=== PATIENT | male | born 1970 | race Caucasian/White ===

== ENCOUNTER 2017-01-27 15:43 | Inpatient (IN) | payer OTHER ==
[~2017-01-27] VITALS: Ht 160 cm; Wt 78.6 kg
--- NOTE | ~2017-01-27 | CO ---
Unit #: [id number] #: [id number] Patient: CHENTE KAHN [id number] [facility] [address] [facility]. [place], [place] [address] [id number] I MR#: [id number] NAME: CHENTE KAHN. ROOM: 317 Age: 46 Sex: M Admission Date: 01/27/2017 : 1970 Attending Physician: Jesse Nelson M.D. Primary Care Physician: Ramez Russell M.D. Consultation Date: 02/02/2017 CONSULTATION REPORT REASON FOR CONSULTATION Followup. DISCUSSION Mr. Chente Kahn is a 46-year-old white male seen in room 317, bed 1 on 02/02/2017 at [facility]. Patient diagnosed with CVA, history of substance abuse, opiate abuse, amphetamine abuse, cannabis abuse. Patient has a sitter. Dressed casually, lying comfortably in bed. The patient reported that they would like to have ice chips. The patient is currently on NPO, scheduled to get feeding tube tomorrow morning. The patient's mood is sad, dysphoric, flat affect but denied any thoughts of harming self or others. No agitation. Compliant with treatment. REVIEW OF SYSTEMS Complete review of systems unremarkable except as mentioned above. Patient's vital signs are 98.7, 62, respirations 16, blood pressure 127/81, oxygen saturation 98%. MENTAL STATUS EXAMINATION General appearance: Patient dressed in hospital attire, thin build, dressed casually in hospital attire. Lying comfortably in propped up position, has a sitter. Attention span and concentration fair. Speech regular rate, slow in volume and rate. Oriented in place and person. Mood and affect sad dysphoric. Thought process coherent. Thought content: Patient denied any thoughts of harming self of others. Denied any hallucination but sad, depressed, withdrawn. Recent and remote memory fair. Language intact. Fund of knowledge fair to slightly impaired. Insight and judgment fair to slightly impaired. DIAGNOSES PSYCHIATRIC: Opiate use disorder, severe, F11.20. Amphetamine use disorder, moderate, F15.20. Major depressive disorder, recurrent, severe, F33.2. Cannabis abuse, moderate, F12.20. ASSESSMENT AND PLAN 1. Supportive psychotherapy and psychoeducation provided to patient. 2. Educated about benefits and side effects of medication and course and prognosis of illness. 3. Advised to continue with sitter one-to-one. Patient is currently on 72-hour hold. Continue with current treatment. If needed, consider further adjustment of medication such as trying SSRI. Please feel free to call if any questions, . Unit #: [id number] #: [id number] Patient: CHENTE KAHN Dictated by... Eric Pérez/cony TD: 02/04/2017 10:58 JOB #: [id number] CONSULTATION REPORT Page 1 of 1 X Julio Cee MD X CONSULTATION REPORT
--- NOTE | ~2017-01-27 | OR ---
Unit #: [id number] #: [id number] Patient: SLOANE MCKEON [id number] [address] [place], [place] [address] [id number] I MR#: [id number] NAME: SLOANE MCKEON ROOM: [facility] Date of Procedure: 02/05/2017 Admission Date: 01/27/2017 Surgeon: David Hernandes M.D. : 1970 Attending Physician: Chaz Black M.D. Primary Care Physician: Ramez Russell M.D. OPERATIVE REPORT PROCEDURE PERFORMED Esophagogastroduodenoscopy with percutaneous endoscopic gastrostomy tube placement. INDICATIONS FOR PROCEDURE The patient with history of acute stroke, now with significant dysphagia and aspiration risk, undergoing evaluation with upper endoscopy for PEG tube placement. MEDICATIONS Monitored anesthesia. POSTOPERATIVE FINDINGS 1. Normal esophagus. Normal stomach. Normal duodenum with distal duodenum. 2. Successful placement of G-tube by push method. PLAN Please see inpatient orders for detailed postop orders. DESCRIPTION OF PROCEDURE The patient was explained of the procedure, risks, and benefits. Informed consent was obtained from fund accountant. He was brought to the endoscopy room. Propofol anesthesia was given. Bite block was placed. The scope was passed down the mouth into esophagus, stomach, duodenum, and distal duodenum. Exam was largely normal. At this point, we identified a spot for PEG tube placement by indentation and transillumination which was then confirmed with safe track method. Small incision was made after local anesthetic was given. Trocar and cannula were passed through this incision into the stomach, where a guidewire was pushed in also which was then pulled out of the patient's mouth using a snare. Push method G-tube was then placed over the wire and pulled out of anterior abdominal wall, where it was secured with an external bumper, re-scoped the patient, inner bumper was nicely in place. Pictures were taken. Gently, the scope was pulled out. He tolerated it well. No major complications were seen. Dictated by... David Hernandes M.D. SKJ/christopherl Unit #: [id number] #: [id number] Patient: SLOANE MCKEON TD: 02/06/2017 06:25 JOB #: [id number] OPERATIVE REPORT Page 1 of 1 X David Hernandes MD PROCEDURE OPERATIVE NOTE
--- NOTE | ~2017-01-27 | FU ---
[facility] Nutrition Therapy DATE: 02/05/17 Patient: SLOANE MCKEON Physician: REGINALD Address: [address] [place] [address] Room/Bed: [address] [place] [address], Zip: [place] [address] Admit Date: 01/27/17 Date of : [birth year] Height: 5 3 Weight: 139 63.4 NUTRITION MONITORING/FOLLOW-UP: Reason: Nutrition follow-up/consult for enteral nutrition recommendations Admitting dx: Pt is a 46 y/o male admitted with a stroke Anthropometrics: HT:63" Admitting WT:144# Current WT:139# BMI:25.5 (based on admit) Labs: Gluc:129 POC:108-126 Meds: Levemir, Furosemide, Low SSI I&O's: BM 02/04 Skin: Mepilex border-coccyx Estimated Nutrition Needs: 7604-6049 kcal/day (25-30 kcals/kg CBW) 63-76g protein/day (1.0-1.2 g/kg CBW) Fluids consistent with kcal needs or per MD. Assessment: Chart reviewed, events noted. RD consulted to provide enteral nutrition recommendations after pt failed LITIGATION ASSISTANT evaluations. Crime Lab Analyst attempted to speak with pt about EN. Pt was able to express understanding with nods, he is not capable of verbal communication at this moment. Pt has a PEG tube placed in preparation for EN. See RD recs below, will continue to follow hospital course. Dx: Inadequate oral intake r/t dysphagia AEB NPO, need for EN. - ACTIVE Intervention: Enteral nutrition initiation Monitoring, Evaluation and Goals: 1. Labs WNL - IN PROGRESS (need to obtain new labs) 2. Maintain current weight status - IN PROGRESS 3. EN consistent with estimated nutritional needs (tolerate @ goal rate) - IN PROGRESS (pt is s/p PEG, EN not yet initiated) 4. Tolerance of oral diet advancement per LITIGATION ASSISTANT once appropriate/able - NOT MET Monitor: per protocol criteria to determine if above goals met Recommendations: [facility] Nutrition Therapy DATE: 02/05/17 Patient: SLOANE MCKEON Physician: REGINALD Address: [address] [place] [address] Room/Bed: [address] [place] [address], Zip: [place] [address] Admit Date: 08/28/17 Date of : [birth year] Height: 5 3 Weight: [address] providing enteral nutrition recommendations. Once able, start enteral nutrition with Glucerna 1.5 @ 20 ml/hr and increase by 10 ml q 4 hours until a goal rate of 45 ml/hr is reached, to provide 100% of estimated nutritional needs (will provide 1080 ml, 1620 kcals, 89 g protein, and 821 ml water). Once at goal rate flush with 200 ml free water QID, or per MD. 2. Continue to obtain current labs. RD will follow to determine tolerance of enteral nutrition. Status: Moderate nutrition risk Respectfully, Earl Santos, MS, RD, LD Charissa Humphrey, Radiologic Electronic Specialist Food and Nutritional Services [facility] cc: client file
--- NOTE | ~2017-01-27 | EKG ---
PATIENT: SLOANE MCKEON UNIT #: [id number] Ventricular Rate: 66 BPM Atrial Rate: 66 BPM P-R Interval: 132 ms QRS Duration: 102 ms Q-T Interval: 468 ms QTC Calculation(Bezet): 490 ms P Edna: 69 degrees Calculated R Edna: 76 degrees Calculated T Edna: 96 degrees Diagnosis Line: Normal sinus rhythm Diagnosis Line: Possible Left atrial enlargement Diagnosis Line: Prolonged QT Diagnosis Line: Abnormal ECG Diagnosis Line: When compared with ECG of 30-JAN-2017 06:19, Diagnosis Line: (unconfirmed) Diagnosis Line: QRS axis Shifted left Diagnosis Line: Confirmed by NIURKA CORTÉS MD ([id number]) on Diagnosis Line: 01/31/2017 4:47:47 PM INTERPRETING MD: JAMIE
--- NOTE | ~2017-01-27 | CT72 ---
[facility] A Service [facility] RADIOLOGY TEXT RESULTS PATIENT: SLOANE MCKEON LOCATION: [address] : [birth year] UNIT #: [id number] AGE: [address]: Jesse Nelson MD SEX: M ORDER DR: [id number] [place], [place] [address] [id number] I MR#: [id number] Acc #: [id number] NAME: SLOANE MCKEON. : 1970 SEX: M STUDY DATE/TIME: 01/27/2017 15:55 UNIT: [facility] ROOM: [facility] STUDY DESCRIPTION: CT Head Wo Contrast Stroke Attending Physician: Renu Aponte M.D. Ordering Physician: Austin Langley M.D. Primary Care Physician: Ramez Russell M.D. MEDICAL IMAGING REPORT This report is preliminary unless electronic signature is present EXAM CT scan of the head without contrast INDICATION Left-sided weakness starting today since 2 p.m. COMPARISON 08/01/[address] exam was performed with one or more of the following radiation dose reduction techniques: automatic exposure control, adjustment of mA and/or kV according to patient size, and iterative reconstruction. FINDINGS Unenhanced images were obtained through the brain. The ventricles and subarachnoid spaces are normal. There is a small area of decreased density in the left krueger radiata in the frontal region which is unchanged from 08/01/2014. This is a few millimeters in diameter. There is no hemorrhage. On the right side there is a more pronounced area of old ischemic change that is about 16 mm in diameter. This is in the subcortical white matter of the frontal lobe. IMPRESSION Old right and left frontal lobe ischemic changes. No acute abnormalities are identified. Dictated by... Alejandro Valdez M.D. THIS IS AN ELECTRONICALLY VERIFIED REPORT [facility] A Service [facility] RADIOLOGY TEXT RESULTS PATIENT: SLOANE MCKEON LOCATION: [address] : [birth year] UNIT #: [id number] AGE: [address]: Jesse Nelson MD SEX: M ORDER DR: Alejandro Valdez M.D. at 01/28/2017 12:43 PM LALI/jose TD: 01/28/2017 00:15 JOB #: [id number] MEDICAL IMAGING REPORT Page 1 of 1 COPY
--- NOTE | ~2017-01-27 | DS ---
Unit #: [id number] #: [id number] Patient: SLOANE MCKEON [id number] [facility]. [place], [place] [address] [id number] I MR#: [id number] NAME: SLOANE MCKEON. ROOM: 317 Age: 46 Sex: M Admission Date: 01/27/2017 : 1970 Discharge Date: 02/06/2017 Attending Physician: Chaz Black M.D. Primary Care Physician: Ramez Russell M.D. DISCHARGE SUMMARY ADDENDUM Please see discharge summary dictated from previous hospital stay on February 05, 2017, for details of hospital stay. Essentially afterwards and while we were awaiting insurance approval for patient to be transitioned to [facility], patient elected to leave AMA. He stated that he no longer wished for any medical care. He was extensively counseled by numerous nurses as well as staff. He elected to sign AMA papers. Subsequently, stated that he had a ride home. Went down to the lobby of the hospital for several hours. He waited there. Nobody came to pick him up and apparently he had no place to go. Therefore, he got into a wheelchair, decided to go down [facility]. Again, he was not sure where he was going at that point in time. Subsequently, he was picked up by EMS services and brought back to the emergency room to where he was re-evaluated. Please see Dr. Orozco's H and P for details of re-admission. Dictated by... Eric Murphy/cony TD: 02/07/2017 14:04 JOB #: [id number] DISCHARGE SUMMARY Page 1 of 1 X Chaz Black MD X DISCHARGE SUMMARY
--- NOTE | ~2017-01-27 | A ---
[facility] Nutrition Therapy DATE: 01/28/17 Patient: SLOANE MCKEON Physician: REGINALD Address: [address] [place] [address] Room/Bed: [address], Zip: [place] [address] Admit Date: 01/27/17 Date of : [birth year] Height: 5 10 Weight: 143 65 NUTRITIONAL ASSESSMENT: REASON: PT SEEN FOR DX WI IS 46 Y.O. MALE ADMITTED FOR CVA PMH: SUBSTANCE ABUSE, DM, HTN, HLD, HI, TIA, SEIZURES, CAD, HEPATITIS, ANXIETY, 1 PPD SMOKER Anthropometrics: 5'3", WT: 144# (65 KG), BMI: 25.5, 116%IBW Labs: GLU: 203, NA+:134, CA+:8.1, ALB: 2.3, A1c: 10.0 (REFLECTS POORLY CONROLLED DM) Meds: NOVOLOG, NACL, D5% I/O & Bowel function: 450/450 Skin Integrity: TATTOOS OBSERVED Assessment: CHART REVIEWED AND EVENTS NOTED. PT SEEN FOR DX. PT SLEEPY/LETHARGIC AT TIME OF VISIT, UNABLE TO COMMUNICATE W/RD FOR DIET INTERVIEW. PER RN AND CHART, PT ADMITTED FOR CVA, CURRENTLY ON STROKE PROTOCOL, UNCOOPERATIVE. PLANS IN PLACE FOR AIR VALVE MECHANIC EVAL TODAY. RD TO FOLLOW. SEE RECOMMENDATIONS BELOW. Dx: ALTERED NUTRIENT NEEDS R/T CURRENT DIAGNOSIS, CURRENT CLINICAL CONDITION AEB NO DIET ORDER IN PLACE, AIR VALVE MECHANIC EVAL TODAY. Intervention: 1. NO DIET ORDER Monitoring, Evaluation and Goals: 1. ORAL INTAKE; ADVANCE DIET AND CONSUME/TOLERATE >50% OF MEALS 2. WEIGHTS; PROMOTE WEIGHT MAINTENANCE 3. LABS; WNL MONITOR: -AIR VALVE MECHANIC EVAL/DIET ADVANCEMENT -PO INTAKE/APPETITE -WEIGHTS -LABS Recommendations: 1. ONCE MEDICALLY FEASIBLE, ADVANCE DIET PER AIR VALVE MECHANIC + CC/HH DIET [facility]: 01[facility]28[facility]17 Patient: SLOANE MCKEON Physician: REGINALD Address: [address] [place] [address] Room/Bed: [address], Zip: [place] [address] Admit Date: 01/27/17 Date of : [birth year] Height: 5 10 Weight: [address] IF DIET EDUCATION REQUESTED RD WILL F/U PER PROTOCOL PT IS MILDLY COMPROMISED Respectfully, VERN CHRISTENSEN MS, RD, LD Food and Nutritional Services [facility] cc: client file
--- NOTE | ~2017-01-27 | CR72 ---
[facility] A Service [facility] RADIOLOGY TEXT RESULTS PATIENT: SLOANE MCKEON LOCATION: [address]09 : [birth year] UNIT #: [id number] AGE: [address]: Jesse Nelson MD SEX: M ORDER DR: [id number] [place], [place] [address] [id number] I MR#: [id number] Acc #: [id number] NAME: SLOANE MCKEON. : 1970 SEX: M STUDY DATE/TIME: 01/28/2017 UNIT: [facility] ROOM: [facility] STUDY DESCRIPTION: CR Chest Single View Portable Attending Physician: Jesse Nelson M.D. Ordering Physician: Tomy Robertson M.D. Primary Care Physician: Ramez Russell M.D. MEDICAL IMAGING REPORT This report is preliminary unless electronic signature is present EXAM Chest portable 01/28/2017 0926 hours HISTORY Shortness of air for 2 days, possible aspiration pneumonia. Patient is unable to provide clinical history. COMPARISON 07/25/2016 FINDINGS Portable upright chest is slightly rotated to the right. Allowing for this, there is stable cardiac size at the upper limits of normal. Mediastinal and hilar contours are normal. Lungs are clear, and there are no effusions. IMPRESSION Slight rightward rotation of the patient with stable heart size at the upper limits of normal. The lungs are clear and there are no effusions. Dictated by... Julia Vasquez M.D. THIS IS AN ELECTRONICALLY VERIFIED REPORT Julia Vasquez M.D. at 01/28/2017 2:28 PM SALVATORE/yazmin TD: 01/28/2017 11:39 JOB #: [id number] MEDICAL IMAGING REPORT [facility] A Service [facility] RADIOLOGY TEXT RESULTS PATIENT: SLOANE MCKEON LOCATION: [address] : [birth year] UNIT #: [id number] AGE: [address]: Jesse Nelson MD SEX: M ORDER DR: Page 1 of 1 COPY
--- NOTE | ~2017-01-27 | CT71 ---
[facility] A Service [facility] RADIOLOGY TEXT RESULTS PATIENT: SLOANE MCKEON LOCATION: [facility] : [birth year] UNIT #: [id number] AGE: [address]: Jesse Nelson MD SEX: M ORDER DR: [id number] [facility]. [place], [place] [address] [id number] I MR#: [id number] Acc #: [id number] NAME: SLOANE MCKEON : 1970 SEX: M STUDY DATE/TIME: 01/30/2017 13:13 UNIT: [address] ROOM: [facility] STUDY DESCRIPTION: CT Head Wo Contrast Attending Physician: Jesse Nelson M.D. Ordering Physician: Alayna Vigil M.D. Primary Care Physician: Ramez Russell M.D. MEDICAL IMAGING REPORT This report is preliminary unless electronic signature is present EXAM CT scan of the head without contrast INDICATIONS Left-sided weakness since 01/27/2017. COMPARISON 01/29/2017 TECHNIQUE Unenhanced images were obtained through the brain. This CT exam was performed with one or more of the following radiation dose reduction techniques: Automatic exposure control, adjustment of mA and/or kV according to patient size, and iterative reconstruction. FINDINGS There is an evolving right basal ganglia infarct. This area of decreased density sparing the thalamus and caudate head but involving the rest of the basal ganglia is about 4 cm in maximum dimension. There is some minimal decreased density in the cortical white matter in the central middle cerebral artery territory. There is no hemorrhage. There is some mucosal thickening in the left maxillary sinus. IMPRESSION Evolving right middle cerebral artery infarct, which is involving almost all the basal ganglia sparing the thalamus and caudate head, and extending up in a smaller distribution to the cortical white matter. There has been no change from yesterday's study. Dictated by... [facility] A Service [facility] RADIOLOGY TEXT RESULTS PATIENT: SLOANE MCKEON LOCATION: [facility] 317 : [birth year] UNIT #: [id number] AGE: [address]: Jesse Nelson MD SEX: M ORDER DR: Alejandro Valdez M.D. THIS IS AN ELECTRONICALLY VERIFIED REPORT Alejandro Valdez M.D. at 01/31/2017 6:51 AM FEL/psc TD: 01/30/2017 16:54 JOB #: [id number] MEDICAL IMAGING REPORT Page 1 of 1 COPY
--- NOTE | ~2017-01-27 | CT18 ---
[facility] A Service [facility] RADIOLOGY TEXT RESULTS PATIENT: SLOANE MCKEON LOCATION: [address] : [birth year] UNIT #: [id number] AGE: [address]: Jesse Nelson MD SEX: M ORDER DR: [id number] [facility] [address] [facility]. [place], [place] [address] [id number] E MR#: [id number] Acc #: [id number] NAME: SLOANE MCKEON. : 1970 SEX: M STUDY DATE/TIME: 01/27/2017 16:27 UNIT: [facility] ROOM: STUDY DESCRIPTION: CT Angio Head Stroke Attending Physician: Farhad Omalley M.D. Ordering Physician: Ed Doctor [id number] [facility] Primary Care Physician: Ramez Russell M.D. MEDICAL IMAGING REPORT This report is preliminary unless electronic signature is present EXAM CT angiogram head and neck HISTORY Focal neurologic deficit, left-sided weakness starting today. Last seen normal at 14:00. TECHNIQUE CT angiography head and neck vessels performed during the intravenous administration of 100 mL of Isovue-370 with imaging acquired in the axial plane followed by multiple reconstructed and reformatted images for the purpose of 3-D CT angiography of the head and neck vessels. This CT exam was performed with one or more of the following radiation dose reduction techniques: automatic exposure control, adjustment of mA and/or kV according to patient size, and iterative reconstruction. COMPARISON Head CT from earlier today. FINDINGS CT ANGIOGRAM NECK: There is atherosclerotic vascular calcification at great vessel origins with some mild soft plaque at the left common carotid artery origin but there is no hemodynamically significant stenosis noted. The branch pattern at the aortic arch is normal. Assessment of the right carotid system shows probably some mild plaque at the bifurcation but by NASCET criteria essentially 0% diameter stenosis. Mild calcified plaque in the siphon with mild stenosis. Evaluation of the left carotid system shows probably some mild soft plaque at the bifurcation but by NASCET criteria 0% stenosis is estimated. There is mild motion degradation of the images. There is some calcified plaque [facility] A Service [facility] RADIOLOGY TEXT RESULTS PATIENT: SLOANE MCKEON LOCATION: [facility] #: [id number] : [birth year] UNIT #: [id number] AGE: [address]: Jesse Nelson MD SEX: M ORDER DR: in the left carotid siphon with mild stenosis likely. The right vertebral artery is patent throughout with a small amount of calcified plaque in the neck and at the proximal intracranial vessel but no hemodynamically significant stenosis is suspected. The left vertebral artery is patent throughout with mild calcified plaque in the neck probably with some mild stenosis. Both vertebral arteries supply the basilar. The right is dominant intracranially. Assessment of the intracranial circulation shows apparent azygos variant to the KRISTAN territory. The intracranial vessels are blurred and this study is suboptimal technically. Part of the technical limitation is probably due to some venous contamination but there also appears to be some patient motion and given this limitation, the patient should be followed with an MR angiogram if he is a candidate to better assess the intracranial vessels. No central vascular cutoff or high-grade central stenosis is definitely seen but the anatomy in the region of the anterior communicating artery is particularly poorly evaluated and the study does not assess for aneurysm. The dural venous sinuses are grossly patent. Neither posterior communicator is definitely seen. There are some cervical spine degenerative changes. The patient is largely edentulous. There is left maxillary sinus disease with retained secretions and probably a small air-fluid level consistent with a component of acute sinusitis. Milder disease in the ethmoid air cells. IMPRESSION 1. By NASCET criteria 0% stenosis is suspected at either carotid bifurcation. 2. Both vertebral arteries are patent. The vessels are fairly codominant in the neck with the right being more dominant intracranially. 3. There is mild atherosclerotic disease involving the vertebral arteries and the carotid arteries bilaterally. There is probably mild narrowing at the bilateral carotid siphons. 4. Assessment of the intracranial circulation is limited. The images are blurred and this appears to be due to a combination of patient motion and some venous contamination. For this reason if the patient can undergo MRI, I would recommend that an MR angiogram of the intracranial vessels be performed. Allowing for the motion and blurring of the images, there is no focal central stenosis or vascular cutoff appreciated. The anatomy at the level of the anterior communicating artery is poorly evaluated and this study does not exclude an aneurysm. There is either an azygos variant KRISTAN territory or at least a dominant right KRISTAN vessel as a vascular variation present. 5. Paranasal sinus disease including an air-fluid level and some retained secretions in the left maxillary sinus consistent with component of acute sinusitis. [facility]. [facility] A Service of [facility] RADIOLOGY TEXT RESULTS PATIENT: SLOANE MCKEON LOCATION: [id number] : [birth year] UNIT #: [id number] AGE: [address]: Jesse Nelson MD SEX: M ORDER DR: STAT * RESULT Dictated by... Lakshmi Lynch M.D. THIS IS AN ELECTRONICALLY VERIFIED REPORT Lakshmi Lynch M.D. at 01/28/2017 7:50 AM UMU/denisha TD: 01/27/2017 17:42 JOB #: [id number] MEDICAL IMAGING REPORT Page 1 of 1 COPY
--- NOTE | ~2017-01-27 | EKG ---
PATIENT: SLOANE MCKEON UNIT #: [id number] Ventricular Rate: 93 BPM Atrial Rate: 93 BPM P-R Interval: 136 ms QRS Duration: 106 ms Q-T Interval: 394 ms QTC Calculation(Bezet): 489 ms P Chestnut: 77 degrees Calculated R Chestnut: 86 degrees Calculated T Chestnut: 102 degrees Diagnosis Line: Normal sinus rhythm Diagnosis Line: Possible Left atrial enlargement Diagnosis Line: Left ventricular hypertrophy Diagnosis Line: Abnormal ECG Diagnosis Line: When compared with ECG of 29-JAN-2017 08:27, Diagnosis Line: T wave inversion now evident in Lateral leads Diagnosis Line: Confirmed by NIURKA CORTÉS MD ([id number]) on Diagnosis Line: 01/31/2017 4:33:25 PM INTERPRETING MD: JAMIE
--- NOTE | ~2017-01-27 | CT71 ---
[facility] A Service of [facility] & [facility] RADIOLOGY TEXT RESULTS PATIENT: SLOANE MCKEON LOCATION: [address] : [birth year] UNIT #: [id number] AGE: [address]: Jesse Nelson MD SEX: M ORDER DR: [id number] [facility] [address]. [place], [place] [address] [id number] I MR#: [id number] #: [id number] NAME: SLOANE MCKEON : 1970 SEX: M STUDY DATE/TIME: 01/28/2017 16:56 UNIT: [facility] [place] ROOM: [facility] STUDY DESCRIPTION: CT Head Wo Contrast Attending Physician: Jesse Nelson M.D. Ordering Physician: Renu Aponte M.D. Primary Care Physician: Ramez Russell M.D. MEDICAL IMAGING REPORT This report is preliminary unless electronic signature is present EXAM Noncontrast head CT HISTORY Followup code stroke 01/27/2017. Alteplase given. Left arm numbness yesterday but no resolution of symptoms. COMPARISON Head CT 01/27/[address] exam was performed with one or more of the following radiation dose reduction techniques: automatic exposure control, adjustment of mA and/or kV according to patient size, and iterative reconstruction. FINDINGS Examination demonstrates interval development of an area of decreased attenuation within the right basal ganglia, right anterior limb of the internal capsule and also extending into the right external capsule. This shows some areas of increased attenuation and suggest an infarct within the right middle cerebral artery distribution with probable hemorrhagic transformation. No significant mass effect or midline shift. Ventricles, sulci and basilar cisterns appear normal. Area of decreased attenuation within the right centrum semiovale, unchanged and probably represents an old infarct as well as probable old infarct left frontoparietal region. No abnormal extraaxial fluid collections identified. Bony calvaria, skull base, mastoids unremarkable. Left maxillary sinus mucosal disease. IMPRESSION 1. Interval development of an area of abnormal attenuation within the right basal ganglia, right anterior limb internal capsule and right external capsule most likely represents an infarct in the distribution of the right middle cerebral artery and probably STS. [facility] A Service of [facility] & [facility] RADIOLOGY TEXT RESULTS PATIENT: SLOANE MCKEON LOCATION: [address] : [birth year] UNIT #: [id number] AGE: [address]: Jesse Nelson MD SEX: M ORDER DR: represents some degree of hemorrhagic transformation though no sizeable hematoma identified. No significant mass effect demonstrated. 2. Generalized atrophy with evidence of previous vascular insult right centrum semiovale and left frontoparietal region. Results are being called to the floor following this dictation. Dictated by... Darío Salguero M.D. THIS IS AN ELECTRONICALLY VERIFIED REPORT Darío Salguero M.D. at 01/29/2017 2:21 PM DINESH/jose TD: 01/28/2017 22:30 JOB #: [id number] MEDICAL IMAGING REPORT Page 1 of 1 COPY
--- NOTE | ~2017-01-27 | FU ---
[facility] Nutrition Therapy DATE: 02/01/17 Patient: SLOANE MCKEON Physician: REGINALD Address: [address] [facility] [facility] Room/Bed: [address] [place] [address], Zip: [place] [address] Admit Date: 01/27/17 Date of : [birth year] Height: 5 3 Weight: 139 63.4 NUTRITION MONITORING/FOLLOW-UP: Reason: Nutrition follow-up/consult for enteral nutrition recommendations Admitting dx: 46 y/o male admitted with stroke Anthropometrics: Ht: 63", admission wt: 144 lbs, current wt: 63 kg (138 lbs), BMI: 25 (overweight; based on admission wt) Labs: glucose/lytes WNL, glucose POC 123-150, A1C 10.0, GFR 59 Meds: Levemir, low SSI, Furosemide GI: Last BM 01/31 Skin: No issues, no edema Estimated Nutrition Needs: 8459-4153 kcals/day (25-30 kcals/kg CBW) 63-76 g protein/day (1-1.2 g/kg CBW) Fluids consistent with kcal needs or per MD Assessment: Chart reviewed, events noted. Patient initially assessed by RD on 01/28/17 due to stroke diagnosis. Prior to today, the patient was on a HH/dental soft/NDD2 diet with HTL, however he failed his most recent HORSE BREAKER eval. RD consulted to provide EN recs. Patient noted to be insistent on still taking PO, nursing persistent on reminding him of NPO status. He is on a [address] Cee is following. See RD recs below, will continue to follow hospital course. Dx: Altered nutrient needs r/t diagnosis AEB NPO, need for HORSE BREAKER - RESOLVED New nutrition dx: Inadequate oral intake r/t dysphagia AEB NPO, need for EN. Intervention: DHT placement and initiation of EN Monitoring, Evaluation and Goals: 1. PO intake > 50% of meals - NO LONGER RELEVANT (pt is NPO) 2. Labs WNL - IN PROGRESS (labs WNL w/ exception of Hgb A1C) 3. Maintain current weight status - IN PROGRESS (note 6 lb weight loss since admission) New nutrition goals (in addition to above): 1. EN consistent with estimated nutritional needs (tolerate @ goal rate). [facility] Nutrition Therapy DATE: 02/01/17 Patient: SLOAEN MCKEON Physician: REGINALD Address: [address] [place] [address] Room/Bed: [address] [place] [address], Zip: [place] [address] Admit Date: 01/27/17 Date of : [birth year] Height: 5 3 Weight: 139 63.4 2. Tolerance of oral diet advancement per HORSE BREAKER once appropriate/able. Monitor: per protocol, criteria to determine if above goals met Recommendations: Patient now NPO due to failing HORSE BREAKER eval. HORSE BREAKER to follow-up as appropriate to determine restart of PO diet. RD providing enteral nutrition recs. Once able place DHT and start enteral nutrition with Glucerna 1.5 @ 20 ml/hr and increase by 10 ml q 4 hours until goal rate of 45 ml/hr is reached, to provide 100% of estimated nutritional needs (will provide 1080 ml, 1620 kcals, 89 g protein and 821 ml water). Once at goal rate flush with 200 ml free water QID, or per MD. RD will follow to determine tolerance of enteral nutrition Status: Moderate nutrition risk Respectfully, Brielle Holland, RD, LD [facility] Nutrition[facility] cc: client file
--- NOTE | ~2017-01-27 | CO ---
Unit #: [id number] #: [id number] Patient: SLOANE MCKEON [id number] [address] [place], [place] [address] [id number] I MR#: [id number] NAME: SLOANE MCKEON ROOM: CIC2 Age: 46 Sex: M Admission Date: 01/27/2017 : 1970 Attending Physician: Jesse Nelson M.D. Primary Care Physician: Ramez Russell M.D. Consultation Date: 01/28/2017 CONSULTATION REPORT REASON FOR CONSULT ICU management. CHIEF COMPLAINT Possible stroke. HISTORY OF PRESENT ILLNESS This is a 46-year-old male with well known history of substance abuse, diabetes, hypertension, hyperlipidemia, seizure, coronary artery disease, anxiety, hepatitis and previous stroke who presented to the emergency room for evaluation and possible stroke. The patient is unable to provide any history even though he is answering some questions and all the information were obtained from the medical records. Apparently patient was last normal seen at 2:00 on the afternoon yesterday. He used methamphetamine that afternoon and then his family found him collapsed in the bathroom. In the emergency room, his NIH score was [address] head showed no acute abnormalities. Patient was given alteplase but his symptom unfortunately didn't resolve. PAST MEDICAL HISTORY 1. Polysubstance abuse. 2. Coronary artery disease. 3. Hypertension. 4. Hyperlipidemia. 5. Diabetes. 6. Seizure. 7. Anxiety. 8. CVA. 9. Nephrolithiasis. 10. Hepatitis. PAST SURGICAL HISTORY 1. Cholecystectomy. 2. Cardiac cath. 3. Lithotripsy. SOCIAL HISTORY The patient has a positive history of polysubstance abuse and yesterday he was doing methamphetamine. He smokes one pack of cigarettes daily. No history of alcohol abuse. Unit #: [id number] #: [id number] Patient: SLOANE MCKEON FAMILY HISTORY Coronary artery disease and hypertension. ALLERGIES No known drug allergy. HOME MEDICATION None. REVIEW OF SYSTEMS Unable to obtain from the patient as he is uncooperative and refusing to give any information at this point. PHYSICAL EXAMINATION GENERAL: The patient is in no acute distress. VITAL SIGNS: Blood pressure 130/62, respiratory rate 28, O2 saturation 94% on room air. HEENT: Atraumatic, normocephalic. PERRLA, EOMI. NECK: Supple. No JVD, no lymphadenopathy. CHEST: Fine rhonchi at the bases. HEART: S1, S2. No murmur, gallops or rubs. ABDOMEN: Soft, nontender. Bowel sounds positive. No hepatosplenomegaly. SKIN: No rashes. [employer] CRUSHER OPERATOR: Patient is lethargic but he is arousable to verbal stimuli. He is oriented to time, place and person. He is refusing to follow commands on the left side. However, he is withdrawing to painful stimuli on the left side. LABS AND OTHER TESTS Creatinine 0.9, sodium 134, CO2 21, white blood count 10.6, hemoglobin 12.9, platelets 278. Chest x-ray is unavailable. CT head is inconsistent with any acute finding. ASSESSMENT 1. Possible acute ischemic cerebrovascular accident status post alteplase administration. 2. Urinary tract infection. 3. Polysubstance abuse. 4. Uncontrolled diabetes. 5. Hypertension. 6. Hyperlipidemia. 7. Seizure disorder. 8. Coronary artery disease. 9. Anxiety. 10. Hepatitis. 11. Tobacco abuse. PLAN 1. Patient will be monitored in the Intensive Care Unit for the next 24 hours, status post alteplase administration. 2. NPO until cleared by neurology. 3. Blood pressure and blood sugar control. 4. Gentle IV hydration while NPO. 5. Rocephin and Diflucan for possible UTI. Unit #: [id number] #: [id number] Patient: SLOANE MCKEON 6. HIV and hepatitis panel are pending. 7. Will obtain chest x-ray to rule out any aspiration pneumonia. 8. Start Lovenox once cleared by urology. I would like to thank Juan Aponte for allowing me to be part of this patient's care. Dictated by... Eric Dougherty TD: 01/28/2017 09:46 JOB #: [id number] CONSULTATION REPORT Page 1 of 1 X SIMON LEPE MD CONSULTATION REPORT
--- NOTE | ~2017-01-27 | CR72 ---
[facility] A Service of [facility] & [facility] RADIOLOGY TEXT RESULTS PATIENT: SLOANE MCKEON LOCATION: [facility] 317- : [birth year] UNIT #: [id number] AGE: [address]: Jesse Nelson MD SEX: M ORDER DR: [id number] [facility] [address] [facility]. [place], [place] [address] [id number] I MR#: [id number] #: [id number] NAME: SLOANE MCKEON : 1970 SEX: M STUDY DATE/TIME: 01/30/2017 0:35 UNIT: [address] ROOM: [facility] STUDY DESCRIPTION: CR Chest Single View Portable Attending Physician: Jesse Nelson M.D. Ordering Physician: Marisol Orozco M.D. Primary Care Physician: Ramez Russell M.D. MEDICAL IMAGING REPORT This report is preliminary unless electronic signature is present EXAM Portable chest. HISTORY Shortness of air and weakness for 4 days. FINDINGS New small patchy infiltrate in the right lung base compared to 01/28/2017. Although nonspecific, this could be due to pneumonia. Short-term followup chest x-ray is recommended. Mild cardiac enlargement. No additional infiltrates are identified. Pulmonary vascularity is normal. Dictated by... Jose Ramon Davila M.D. THIS IS AN ELECTRONICALLY VERIFIED REPORT Jose Ramon Davila M.D. at 01/30/2017 4:39 AM DFL/wendy TD: 01/30/2017 01:34 JOB #: [id number] MEDICAL IMAGING REPORT Page 1 of 1 COPY
--- NOTE | ~2017-01-27 | TOC ---
Unit #: [id number] #: [id number] Patient: SLOANE MCKEON [id number] [facility]. [place], [place] [address] [id number] I MR#: [id number] NAME: SLOANE MCKEON. ROOM: [facility] Age: 46 Sex: M Admission Date: 01/27/2017 : 1970 Attending Physician: Jesse Nelson M.D. Primary Care Physician: Ramez Russell M.D. TRANSFER OF CARE SUMMARY DIAGNOSES AT THE TIME OF THIS DICTATION 1. Aspiration pneumonia. 2. Right middle cerebral artery infarct. 3. Amphetamine abuse. 4. Hepatitis C. 5. Hypertension. 6. Seizure disorder. HOSPITAL COURSE Patient is a 46-year-old male brought to [facility] on 01/27/17 secondary to possible stroke. Apparently, he had been found after he collapsed in the bathroom and was brought to the ED as a result. Patient was within the window for intervention for stroke and he did receive alteplase. Despite receiving alteplase, there appeared to be little change in the patient's symptoms. Ultimately, CT of the head revealed right basal ganglier infarct with a minimal amount of petechial hemorrhage. It was noted to involve the right middle cerebral artery and, at the time of this dictation, most recent CT of the head shows the stroke involves almost all of the basal ganglia sparing the thalamus and caudate head and extends up into the cortical white matter. Since being brought to the hospital, the patient has stated that he wants to go home. Discussion with family reveals that there would be no one to come pick him up until medical staff felt that it was safe and appropriate for him to discharge. Patient himself continued to want to go home even going so far as to attempt to call a cab and have staff wheel him down and have him wheeled into a cab. At that point, there became some question as to whether the patient was truly understanding the gravity of his situation. On 01/31, the date of this dictation, the swallow study was performed. Showed that the patient does indeed aspirate. Speech's recommendation is that the patient remain strictly NPO. I have attempted to explain this to the patient and does not seem to be able to understand. Despite being told that he cannot safely have food or liquids of any consistency, he keeps repeating that he wants to have thickened liquids. When I explained to him he risks aspiration and , he just simply repeats I want thickened liquids. It is not clear to me at this time that the patient understands what is happening or why it is recommended that he not have thickened liquids at this time. As a result of this lack of understanding, I have placed him on a 72-hour hold and requested psychiatry's input. Unit #: [id number] #: [id number] Patient: SLOANE MCKEON Dictated by... Eric Liang/eric TD: 02/03/2017 14:15 JOB #: [id number] TRANSFER OF CARE SUMMARY Page 1 of 1 X Jesse Nelson MD X TRANSFER OF CARE SUMMARY
--- NOTE | ~2017-01-27 | CO ---
Unit #: [id number] #: [id number] Patient: CHENTE KAHN [id number] [address] [place], [place] [address] [id number] I MR#: [id number] NAME: CHENTE KAHN. ROOM: [facility] Age: 46 Sex: M Admission Date: 01/27/2017 : 1970 Attending Physician: Chaz Black M.D. Primary Care Physician: Ramez Russell M.D. Consultation Date: 02/05/2017 CONSULTATION REPORT REASON FOR CONSULTATION Followup. DISCUSSION Mr. Chente Kahn is a 46-year-old male, seen on 02/05/2017. The patient will be going for a PEG tube placement. The patient compliant, cooperative, still has a sitter. Mood; sad, dysphoric, flat affect. The patient's vital signs; temperature 98.8, pulse 51, respirations 20, blood pressure 163/77, and oxygen saturation 99%. The patient is currently on a 72-hour hold. bilingual social worker was currently working with the power of regulatory attorney [id number] to get the paper signed. The patient did not show any agitation. REVIEW OF SYSTEMS Complete review of system unremarkable. MENTAL STATUS EXAMINATION General appearance; the patient dressed casually in hospital attire, lying comfortably in bed. The patient's vital signs; temperature 98.8, pulse 51, respirations 20, blood pressure 163/77, and oxygen saturation 99%. Attention span and concentration, fair. Speech, regular rate and coherent. Oriented in place and person. Mood and affect; sad, dysphoric, anxious. Thought process, coherent. Thought content, the patient denied any thoughts of harming self or others or any hallucination. Recent and remote memory, fair to slightly impaired. Language, intact. Fund of knowledge, fair. Insight and judgment, fair to slightly impaired. DIAGNOSES Psychiatric: Major depressive disorder, recurrent, severe, F33.2; opioid use disorder, severe, F11.20; amphetamine use disorder, severe, F15.20; cannabis abuse, moderate, F12.20. ASSESSMENT/PLAN 1. Supportive psychotherapy and psychoeducation provided to the patient. 2. Educated about benefits and side effects of medication and course and prognosis of illness. 3. Recommending to continue with current treatment and the patient will be going for a percutaneous endoscopic gastrostomy tube placement and after that possible for rehab. Please feel free to call if any questions, telephone #[phone]. Dictated by... Julio Cee M.D. Unit #: [id number] #: [id number] Patient: CHENTE KAHN NORBERT/carlton TD: 02/05/2017 17:54 JOB #: [id number] CONSULTATION REPORT Page 1 of 1 X Julio Cee MD X CONSULTATION REPORT
--- NOTE | ~2017-01-27 | CO ---
Unit #: [id number] #: [id number] Patient: CHENTE KAHN [id number] [facility] [address] [facility]. [place], [place] [address] [id number] I MR#: [id number] NAME: CHENTE KAHN. ROOM: 317 Age: 46 Sex: M Admission Date: 01/27/2017 : 1970 Attending Physician: Jesse Nelson M.D. Primary Care Physician: Ramez Russell M.D. Consultation Date: 01/31/2017 CONSULTATION REPORT REASON FOR CONSULTATION Substance overdose and depression. HISTORY OF PRESENT ILLNESS Mr. Chente Kahn is a 46-year-old male, seen in room 317 on unit 3A at [facility] on 01/31/2017. The patient dressed in hospital attire, having difficulty in ambulation. The patient was admitted with seizure and has a history of acute IA, coronary artery disease, hypertension, diabetes, dyslipidemia, depression, and anxiety. The patient's urine drug screen was positive for amphetamine and marijuana. The patient has a history of polysubstance abuse. The patient was admitted in altered mental status and suffered a stroke and has weakness on the left side of the body. The patient also has an uncontrollable diabetes. Blood sugar was 283. The patient was demanding to leave. Subsequently, the patient was placed on 72-hour hold and a sitter. The patient was barely able to move needing physical therapy, but he reports that he can go home and live by himself. The patient has poor insight and poor judgment. The patient also reported that he does not care. He will go home and drink although he has problem with his swallowing and failed swallow study and advised not to take anything by mouth at this time and possibly looking for a PEG tube. The patient reports that he does not care and seems very anxious. The patient's family found him collapsed in the bathroom and tested positive for marijuana and amphetamine. The patient's vital signs; temperature 99.1, pulse 62, respirations 16, blood pressure 119/75, and oxygen saturation 98%. PAST PSYCHIATRIC HISTORY Remarkable for history of substance abuse and anxiety. No history of any inpatient treatment or any suicide attempt. History of amphetamine abuse and marijuana abuse. MEDICAL HISTORY History of coronary artery disease with ejection fraction at around 40%, hypertension, hyperlipidemia, diabetes, seizure, anxiety, cerebrovascular accident, hepatitis, and nephrolithiasis. MEDICATIONS The patient is currently on furosemide, Plavix, aspirin, Levemir, Xanax p.r.n., nitroglycerin, Lopressor, Zestril, hydralazine, Lipitor, Diflucan, and NovoLog. FAMILY HISTORY AND SOCIAL HISTORY The patient has a poor support system. Lives by himself and has support Unit #: [id number] #: [id number] Patient: CHENTE KAHN from friends only. No history of abuse. History of substance abuse as mentioned above. REVIEW OF SYSTEMS Complete review of systems is unremarkable except as mentioned above. Weakness on the left side of the body and problem with swallowing. MENTAL STATUS EXAMINATION VITAL SIGNS: Please see above. GENERAL APPEARANCE: The patient is thin built and dressed casually in hospital attire, seemed somewhat anxious, nervous. Attention span and concentration, poor. Speech, slow in volume. Poor articulation. Orientation to himself and place. Mood and affect, labile. Thought process, circumstantial. Thought content, the patient denied any thoughts of harming self or others, but hopelessness, worthlessness, anxiety, guarded, and paranoid, but denied any auditory or visual hallucination. Recent and remote memory, fair to slightly impaired. Language, fair. Fund of knowledge, fair to slightly impaired. Insight and judgment, fair to impaired. DIAGNOSES Psychiatric: Opioid, major depressive disorder, recurrent, severe; F33.20; amphetamine use disorder, severe, F15.20; and cannabis abuse, moderate, F12.20. Secondary diagnosis: Deferred. Medical diagnosis: Please refer to H and P. Stressors: Psychosocial stressors. ASSESSMENT/PLAN 1. Supportive psychotherapy and psychoeducation provided to the patient. 2. Educated about benefits and side effects of medication and course and prognosis of illness. 3. Advised to continue with current treatment. Continue with 72-hour hold and one-on-one sitter for the patient's safety. Based on current examination and condition and recent CVA and altered mental status upon admission, the patient at this time is unable to make informed medical decision at this time. Therefore, we will continue with treatment at this time and work with the home care attendant to work on getting power of trust and estates attorney. Please feel free to call if any questions telephone #[phone]. If needed, consider medication. Dictated by... Eric Pérez/carlton TD: 02/01/2017 13:45 JOB #: [id number] Unit #: [id number] #: [id number] Patient: CHENTE KAHN Katelyn CONSULTATION REPORT Page 1 of 1 X Julio Cee MD X CONSULTATION REPORT
--- NOTE | ~2017-01-27 | CT71 ---
[facility] A Service of [facility] RADIOLOGY TEXT RESULTS PATIENT: SLOANE MCKEON LOCATION: [facility] 317-01 : 66 UNIT #: [id number] AGE: [address]: Jesse Nelson MD SEX: M ORDER DR: [id number] [facility]. [place], [place] [address] [id number] I MR#: [id number] Acc #: [id number] NAME: SLOANE MCKEON : 1970 SEX: M STUDY DATE/TIME: 01/29/2017 6:57 UNIT: [facility] ROOM: [facility] STUDY DESCRIPTION: CT Head Wo Contrast Attending Physician: Jesse Nelson M.D. Ordering Physician: Alayna Vigil M.D. Primary Care Physician: Ramez Russell M.D. MEDICAL IMAGING REPORT This report is preliminary unless electronic signature is present EXAM Head CT no contrast, 01/29/2017 COMPARISON 01/28/2017 PROCEDURE Axial unenhanced head CT. This CT exam was performed with one or more of the following radiation dose reduction techniques: automatic exposure control, adjustment of mA and/or kV according to patient size, and iterative reconstruction. CLINICAL HISTORY Left side weakness for 2 days. FINDINGS Redemonstrated right basal ganglier minimally hemorrhagic infarct. There is slight petechial hemorrhage within the area of ischemia and slightly better defined hypodensity on the current exam when compared to the prior study. Mass effect is stably minimal. No new hemorrhage is seen. No new area of abnormality is identified. Preexisting chronic presumably ischemic change is redemonstrated as well. There is no hydrocephalus or extraaxial fluid collection. The extracranial soft tissues are normal. Left maxillary sinus mucosal disease is redemonstrated but the skull base and calvaria remain otherwise normal. IMPRESSION Maturing right basal ganglier infarct with minimal petechial hemorrhage. Again it shows slight maturation since the prior study but otherwise is unchanged. No evidence of new or increasing hemorrhage. No new area of ischemia through background areas of chronic ischemic change are redemonstrated as well. [facility] A Service of [facility] RADIOLOGY TEXT RESULTS PATIENT: SLOANE MCKEON LOCATION: [facility] 317-01 : [birth year] UNIT #: [id number] AGE: [address]: Jesse Nelson MD SEX: M ORDER DR: Dictated by... Eduar Ramírez M.D. THIS IS AN ELECTRONICALLY VERIFIED REPORT Eduar Ramírez M.D. at 01/31/2017 4:07 PM COLEEN/denisha TD: 01/29/2017 08:44 JOB #: [id number] MEDICAL IMAGING REPORT Page 1 of 1 COPY
--- NOTE | ~2017-01-27 | HP ---
Unit #: [id number] #: [id number] Patient: SLOANE MCKEON [id number] [facility]. [place], [place] [address] [id number] I MR#: [id number] NAME: SLOANE MCKEON. ROOM: 26952 Age: 46 Sex: M Admission Date: 01/27/2017 : 1970 Attending Physician: Renu Aponte M.D. Primary Care Physician: Ramez Russell M.D. HISTORY AND PHYSICAL CHIEF COMPLAINT Possible stroke. HISTORY OF PRESENT ILLNESS The patient is a 46-year-old male with a past medical history of substance abuse, diabetes, hypertension, hyperlipidemia, seizures, coronary artery disease, anxiety, hepatitis, and stroke, who presented to the emergency department for evaluation of the above. History is obtained from chart review and discussion with ER staff, as well as from the patient. The patient was apparently last normal at 2 o'clock on the afternoon of admission. He used methamphetamine this afternoon. He states that he smoked it. His family found him collapsed in the bathroom. He was brought to the emergency department for further evaluation. In the emergency department, a Code Stroke was called. NIH score was 7. CT of the head showed no acute abnormality. He was given alteplase. Symptoms have not improved. He also has findings concerning for urinary tract infection. He is currently wanting to leave against medical advice. He is being admitted to [facility] for evaluation and further treatment. PAST MEDICAL HISTORY 1. Admission to [facility] August 01, 2014, for respiratory failure requiring intubation and overdose. He left against medical advice during that admission. 2. Coronary artery disease. Patient had a cardiac catheterization February 27, 2014, that showed 40-50% stenosis in the mid LAD, as well as 90% thrombotic lesion. He underwent stenting of the LAD. Ejection fraction was 40% per cardiac cath report. 3. Hypertension. 4. Hyperlipidemia. 5. Diabetes. 6. Seizures. Patient's last seizure was more than a year ago. He is not on any antiepileptic medication. 7. Anxiety. 8. History of cerebrovascular accident. The patient states that he has residual left hand and arm weakness. 9. Hepatitis. 10. Nephrolithiasis. PAST SURGICAL HISTORY 1. Cholecystectomy. Unit #: [id number] #: [id number] Patient: SLOANE MCKEON 2. Cardiac catheterization. 3. Lithotripsy. SOCIAL HISTORY Patient has a history of polysubstance abuse. He today states that he used methamphetamine. Toxicology screen is also positive for marijuana. He smokes a pack of cigarettes daily. He denies alcohol use. He states that he walks with a cane. He does have a history of IV drug use with last use being about six months ago. FAMILY HISTORY Notable for his grandfather having a myocardial infarction. ALLERGIES No known allergies. HOME MEDICATIONS None. REVIEW OF SYSTEMS A complete review of systems is negative except as indicated in the HPI. PHYSICAL EXAMINATION VITAL SIGNS: Temperature is not recorded, pulse 91, respirations 16, blood pressure 126/72, and oxygen saturation is 98% on room air. GENERAL: Patient is a male who is awake and alert. HEENT: Head is atraumatic. Mucous membranes are moist. NECK: Supple. Trachea is midline. CARDIOVASCULAR: Regular rate and rhythm. LUNGS: Clear to auscultation bilaterally with no increased work of breathing. ABDOMEN: Soft and nontender with bowel sounds present in all four quadrants. EXTREMITIES: Nontender with no pedal edema. NEUROLOGIC: Patient is oriented x3. He does have left facial droop. He also has a flaccid left upper extremity. Sensation is subjectively decreased involving the left upper extremity. The left lower extremity demonstrates drift. PSYCHIATRIC: Patient demonstrates a flat affect. SKIN: Skin of examined areas is warm and dry. DIAGNOSTIC STUDIES LABORATORY: Complete blood count is essentially normal. INR is 1.1. Comprehensive metabolic panel notable for glucose of 283, BUN and creatinine 16 and 1.4, respectively, ALT is 43, and albumin 2.8. Urinalysis notable for 2+ leukocyte esterase, 2+ protein, greater than 1000 glucose, and 3+ blood with 25-50 red blood cells, enumerable white blood cells, and 4+ bacteria. Yeast are also present. Urine toxicology screen positive for marijuana and amphetamine. Troponin is less than 0.05. IMAGING: CT of the head shows nothing acute. CT angiogram of the head and neck shows by NASCET criteria zero percent stenosis at either carotid bifurcation. Intracranial assessment is limited due to blurred imaging. CARDIOLOGY: EKG shows normal sinus rhythm with a rate of 95 beats per minute. ASSESSMENT Unit #: [id number] #: [id number] Patient: SLOANE MCKEON The patient is a 46-year-old male with: 1. Cerebrovascular accident, status post alteplase. 2. Urinary tract infection. There are no urine cultures in [facility] for review. 3. Methamphetamine abuse with last use today. 4. Uncontrolled diabetes with glucose of 283 noted on comprehensive metabolic panel. 5. Hypertension. 6. Hyperlipidemia. 7. Seizures, not on antiepileptic medications. 8. Coronary artery disease, status post stent placement. 9. Anxiety. 10. Hepatitis. 11. History of cerebrovascular accident with residual left hand and arm weakness. 12. Tobacco abuse. PLAN 1. Admit to ICU. 2. N.p.o. until speech evaluation and per TPA protocol. Speech Therapy to evaluate and treat. 3. TPA protocol per Neurology. 4. Stroke protocol per Neurology. 5. Consult Dr. Vigil regarding stroke. 6. D5 half normal saline at 75 mg/hour. 7. Bedrest. 8. Fall precautions. 9. Blood cultures x2. 10. Urine culture and sensitivity on urine in the lab. 11. Rocephin and fluconazole pending results of urine culture. 12. Check HIV and hepatitis panel. 13. Hemoglobin A1c. 14. Low-dose sliding scale insulin with Accu-Cheks. 15. Consult Dr. Tomy Robertson regarding ICU admission. 16. Serial cardiac enzymes. 17. Repeat labs in the morning. 18. Additional workup and consultants based on above. Forty-three (43) minutes critical care time spent in the care of this patient (6 p.m. to 6:43 p.m.). Dictated by Eric Khalil/gita TD: 01/27/2017 19:54 JOB #: [id number] Unit #: [id number] #: [id number] Patient: SLOANE MCKEON HISTORY AND PHYSICAL Page 1 of 1 X Renu Aponte MD HISTORY AND PHYSICAL
--- NOTE | ~2017-01-27 | CO ---
Unit #: [id number] #: [id number] Patient: SLOANE KAHN [id number] [place], [place] [address] [id number] I MR#: [id number] NAME: SLOANE KAHN. ROOM: 317 Age: 46 Sex: M Admission Date: 01/27/2017 : 1970 Attending Physician: Jesse Nelson M.D. Primary Care Physician: Ramez Russell M.D. Consultation Date: 01/29/2017 CONSULTATION REPORT REASON FOR CONSULTATION Elevated troponin and tachycardia and new LV dysfunction, LV EF of 10% to 15%. HISTORY OF PRESENT ILLNESS This is a 46-year-old, white male. He has a previous history of having a stroke, had some left-sided residual. His last documented cath was back in 2013. He had a PCI and stent placed in the LAD. He is a diabetic, hypertension, hyperlipidemia, seizure disorder, hepatitis, history of nicotine and polysubstance abuse, uses "ice," methamphetamines. Patient came into the emergency room with increased left-sided weakness. Code stroke was called. He was found to have an acute infarct in the right middle cerebral artery territory. He did have TPA on 01/27 around 5:00 p.m. Patient continues to have some left-sided residual, especially in the left lower extremity. He also was found to have a urinary tract infection. Patient had other labs, which his initial troponin was less than 0.05, then on the his troponin went up to 0.45. His percentage of MB went up to 22.4. Patient, on interview, he can answer most simple questions. He appears to be alert and oriented. He denies any chest pain, pain in his neck, bilateral jaw, shoulders, ribs, or elbow. He denies any palpitations. He says he did not have any dizziness or syncope. Cardiology (1) . Also, since admission, he had a echocardiogram. He was found to have an EF of 10% to 15%. A bubble study was performed and there was no shunt across the interatrial septum and he had sgpn-qi-hrhdqsde MR. With these findings along with elevated troponin, cardiology has been consulted. His EKG does have some nonspecific ST-T wave abnormalities. PAST MEDICAL HISTORY 1. In 2013, he had a cardiac cath. Ejection fraction was 40%, 40% to 50% stenosis in the mid LAD, and a 90% thrombotic lesion. He (2) status post PCI and stent of the LAD. 2. Previous stroke, residual in the left side and has left-sided weakness. 3. Diabetes mellitus type 2. 4. Hypertension. 5. Hyperlipidemia. 6. History of seizures. 7. History of hepatitis. 8. History of nephrolithiasis. 9. Nicotine abuse. 10. In 2014, was hospitalized in respiratory failure, was intubated, and that was secondary to an overdose. 11. Polysubstance abuse. History of using heroin and currently using ice Unit #: [id number] #: [id number] Patient: SLOANE KAHN or methamphetamines. PAST SURGICAL HISTORY 1. Status post PCI and stent of the LAD back in 2013. 2. Cholecystectomy. 3. Lithotripsy for kidney stones. HOME MEDICATIONS Currently, patient was on none. Looking back on previous discharge after his MT, patient was on Norvasc, Toprol, Lipitor, lisinopril, aspirin, Plavix, Celexa, and metformin. ALLERGIES No known drug allergies. SOCIAL HISTORY Patient lives with a friend. He has a history of polysubstance abuse. He says he is using "ice," which is methamphetamine. His tox screen is positive for marijuana. He smokes a pack of cigarettes a day. He has been smoking most of his adult life. He denies alcohol use. He ambulates with a can since his stroke. He said he was using heroin about six months ago. FAMILY HISTORY His grandfather had a myocardial infarction. REVIEW OF SYSTEMS See details of HPI. PHYSICAL EXAMINATION GENERAL APPEARANCE: Mr. Kahn is a 46-year-old, white male in no acute respiratory distress. He is awake, alert. Answers most questions appropriately. Knew person, place, year, and month. VITAL SIGNS: Currently blood pressure is 166/88, heart rate 104, respirations 28, temperature is 98.2, 2 sat 97% on room air. NECK: Trachea midline. No thyromegaly or lymphadenopathy. Normal carotid upstrokes. No jugular venous distention. HEART: S1, S2 regular rate and rhythm, slightly tachycardic on exam. LUNGS: Diminished. ABDOMEN: Flat, soft, and nontender. EXTREMITIES: Pedals are palpable. No pedal edema. DIAGNOSTIC STUDIES LABORATORY: Glucose is 203, BUN 11, creatinine 0.9, EGFR is 100.6, sodium 134, potassium 4.3, chloride 107, CO2 21, calcium is 8.1, total protein 6.1, albumin 2.3, bili total 0.5, AST 38, ALT 42, alk phos is 56. Fasting lipid profile has a cholesterol of 124, triglycerides 94, LDL of 74, HCL is 28. C reactive protein is 9.2. WBC is 10, hemoglobin 12.9, hematocrit 39.4, and platelets 278. Initial cardiac enzymes: CK MB is 4.5, troponin less than 0.05. CK MB is 3.8, troponin less than 0.05. Repeat cardiac enzymes: CK total is 56, troponin 0.29, CK total is 46, troponin 0.45, CK total is 39, troponin 0.40. this morning, CK total is 51 and troponin 0.22. IMAGING: CT of the head on admission without contrast shows an old right and left frontal lobe ischemic changes, otherwise nothing acute. CT angio of the neck and head shows both vertebral arteries are patent, Unit #: [id number] #: [id number] Patient: SLOANE KAHN A mild atherosclerotic disease. Chest x-ray shows lungs are clear, no effusions. CT of the head, followup stroke protocol, shows development of an area of abnormal attenuation within the basal ganglia, right anterior limb internal capsule, and right external capsule most likely representing an infarct in the distribution of the right middle cerebral artery and probably some degree of hemorrhagic transformation though no sizeable hematoma identified. CT of the head today shows maturing right basilar ganglier infarct with minimal petechial hemorrhage. No evidence of new or increasing hemorrhage. CARDIOVASCULAR: EKG shows normal sinus rhythm with ventricular rate 95 beats per minute, left atrial enlargement, rightward axis deviation with prolonged QT, Q waves in V1. IMPRESSION 1. Acute stroke, right MCA distribution infarct. 2. Elevated troponin, peaked at 0.45, not indeterminant. 3. Hypertension. 4. New left ventricular dysfunction. LV EF of 10% to 15% on 2D echo performed on 01/28. 5. History of previous stroke. 6. Noncompliant. 7. Diabetes mellitus type 2. 8. Hypertension. 9. Hyperlipidemia. 10. History of PCI and stent of the LAD back in 2013. 11. History of seizures. 12. History of nephrolithiasis. 13. History of hepatitis. 14. Nicotine abuse. 15. Polysubstance abuse. Had been using heroin, now using methamphetamines. PLANS 1. Cardiology consult to assist with evaluation and management. 2. On exam, there are no signs or symptoms of angina, but he had a mild bump in his troponin. Will monitor closely. His EKG does not show anything acute. 3. A swallow study is planned for today. If he is swallowing without any difficulty, will add ANGEL inhibitor, lisinopril 5 mg p.o. b.i.d. along with metoprolol 25 mg p.o. b.i.d. with parameters. Dr. Nicole discussed with Dr. Vigil about starting on blood pressure medication and he had no objection. 4. No blood thinners at this time because of hemorrhagic conversion on his CT of the head. Dr Vigil to follow that. 5. Patient is also on statin. As mentioned, will hold aspirin until a MRI is done to make sure there is no bleeding. 6. Strict input and output and daily weight. Will watch for any fluid overload. Patient's IV fluids have been stopped. 7. Patient has been noncompliant for some time with his medical management. Will encourage compliancy. 8. Will encourage to stop smoking and stop polysubstance abuse. Information provided to patient. 9. On exam, there are no signs or symptoms of acute congestive heart Unit #: [id number] #: [id number] Patient: SLOANE KAHN. 10. Further recommendations pending per Dr. Nicole. Thank you very much for allowing us to assist in his care. Dictated by... Emil Raza/eric TD: 01/30/2017 09:55 JOB #: [id number] CONSULTATION REPORT Page 1 of 1 X Yolanda Johnson APRN CONSULTATION REPORT
--- NOTE | ~2017-01-27 | DS ---
Unit #: [id number] #: [id number] Patient: SLOAEN MCKEON [id number] [place], [place] [address] [id number] MR#: [id number] NAME: SLOANE MCKEON. ROOM: 317 Age: 46 Sex: M Admission Date: 01/27/2017 : 1970 Discharge Date: 02/06/2017 Attending Physician: Chaz Black M.D. Primary Care Physician: Ramez Russell M.D. DISCHARGE SUMMARY REASON FOR ADMISSION Possible stroke. HISTORY OF PRESENT ILLNESS/HOSPITAL COURSE The patient is a 46-year-old male that had been found collapsed in the bathroom, was brought to the emergency department via EMS services. Patient was within the window for intervention for stroke and thus did receive Alteplase while in the emergency room. Despite receiving Alteplase, there was little change in his overall symptoms on day of admission. Ultimately, a CT of the head revealed a right basal ganglia infarct with minimal amount of petechial hemorrhages. Patient was subsequently placed on telemetry floor and consultation was placed to Dr. Vigil of neurology services. Recent CT and repeat imaging showed stroke involved almost all the basal ganglia sparing the thalamus and caudate head and extends up into the cortical white matter. Appropriate stroke protocol was initiated including a swallow study. Patient does have aspiration and is high risk for aspiration and therefore, recommendation was made for NPO status. Despite numerous occasions where we tried to notify the patient of these results, he began stating that he wished to go home and he stated that he would eat on his own accord. This subsequently prompted a psychiatric evaluation by Dr. Cee. He was initially stabilized and felt as though secondary to hospital stay with recent CVA, he was also placed on 72-hour hold. Once the 72-hour hold , Dr. Cee re-evaluated patient. He was much more calm and at that point in time, he was agreeable to PEG tube placement and subsequently he underwent PEG tube placement by Dr. Hernandes. He has been started on tube feeds and has tolerated well without difficulty. He has been seen and evaluated by physical and occupational therapy services and is deemed appropriate for rehab placement. The patient will be transitioned to rehab facility later this afternoon. His csrqrc-mg-lok functions as his power of assistant prosecuting attorney. Unfortunately, his overall prognosis is very poor secondary to his lack of insight into his disease process. He continues to state that he will eat as soon as he gets home. I did notify him of his high aspiration risk, impending respiratory failure, as well as, strong concern for concern for underlying Unit #: [id number] #: [id number] Patient: SLOANE MCKEON A silent aspiration. Therefore, patient stated that he would "do what he wants" when he gets home. At this point in time from our standpoint, patient does require rehab. He is agreeable to [facility]. He will be discharged to [facility] for ongoing care with medications as listed below. It should be noted secondary to prior history of diastolic dysfunction as well as accelerated hypertension need for LISSY. Consultation was placed to Dr. Nicole and associates for evaluation. It should also be noted that patient did have mildly elevated troponins which were felt to be nonspecific in nature. FINAL DISCHARGE DIAGNOSES 1. Acute right MCA CVA status post TPA with resultant petechial hemorrhage. 2. NSTEMI. 3. Chronic systolic heart failure present on admission with ejection fraction 10% to 15%. 4. Aspiration pneumonia. 5. Chronic dysphagia, status post PEG tube placement. 6. Polysubstance abuse history. 7. Methamphetamine abuse. 8. Status post PEG by Dr. Hernandes. 9. Diabetes type 2. 10. Vaqurkbn-tc-bxzfjo protein/caloric malnutrition. 11. Likely underlying dementia, dmmb-ho-pjxewibv. 12. Underlying psychiatric disorder. FINAL DISCHARGE MEDICATIONS 1. DuoNeb aerosol solution q.6 hours scheduled. 2. Coreg 3.125 mg b.i.d. 3. Lasix 20 mg daily. 4. Lipitor 10 mg daily. 5. Zestril 10 mg daily. 6. Levemir 5 units subcutaneous b.i.d. 7. NovoLog low-dose sliding scale Accu-Cheks q.6 hours. 8. Aspirin 81 mg daily. 9. Ferrous sulfate 325 mg daily. 10. Aldactone 12.5 mg daily. 11. Klor-Con 10 mEq b.i.d. 12. Plavix 75 mg daily. 13. Augmentin 875 mg b.i.d. x3 days. DISCHARGE DISPOSITION Rehab. PROGNOSIS Long-term prognosis poor. Dictated by... Chaz Balck M.D. Unit #: [id number] #: [id number] Patient: SLOANE MCKEON ERIK/cony TD: 02/07/2017 13:43 JOB #: [id number] DISCHARGE SUMMARY Page 1 of 1 X Chaz Black MD X DISCHARGE SUMMARY
--- NOTE | ~2017-01-27 | CT24 ---
[facility] A Service of [facility] RADIOLOGY TEXT RESULTS PATIENT: SLOANE MCKEON LOCATION: [address] : [birth year] UNIT #: [id number] AGE: [address]: Jesse Nelson MD SEX: M ORDER DR: [id number] [place], [place] [address] [id number] MR#: [id number] Acc #: [id number] NAME: SLOANE MCKEON. : 1970 SEX: M STUDY DATE/TIME: 01/27/2017 16:27 UNIT: [facility] ROOM: STUDY DESCRIPTION: CT Angio Neck Stroke Attending Physician: Home Omalley Ordering Physician: Ed Doctor [id number] [facility] Primary Care Physician: Ramez Russell M.D. MEDICAL IMAGING REPORT This report is preliminary unless electronic signature is present EXAM CT angiogram of the neck HISTORY FINDINGS Please see CT angiogram of the head for results. Dictated by... Lakshmi Lynch M.D. THIS IS AN ELECTRONICALLY VERIFIED REPORT Lakshmi Lynch M.D. at 01/28/2017 7:50 AM Jessy TD: 01/27/2017 17:42 JOB #: [id number] MEDICAL IMAGING REPORT Page 1 of 1 COPY
--- NOTE | ~2017-01-27 | CO ---
Unit #: [id number] #: [id number] Patient: CHENTE KAHN [id number] [facility] [address] [facility]. [place], [place] [address] [id number] I MR#: [id number] NAME: CHENTE KAHN. ROOM: 317 Age: 46 Sex: M Admission Date: 01/27/2017 : 1970 Attending Physician: Jesse Nelson M.D. Primary Care Physician: Ramez Russell M.D. Consultation Date: 02/04/2017 CONSULTATION REPORT REASON FOR CONSULTATION Followup. DISCUSSION Mr. Chente Kahn is a 46-year-old male, seen on 02/04/2017 in room #317, bed 1 at [facility]. On 02/04/2017, the patient was pleasant, cooperative during interview. The patient is tolerating medication fairly well. Currently n.p.o. due to scheduled to get a feeding tube. The patient was unable to get a feeding tube yesterday. The patient's sister, who will be power of early childhood associate teacher will be coming today to give permission. The patient has a history of opioid abuse, amphetamine abuse, cannabis abuse, and depression. The patient was somewhat sad upset about unable to get anything by mouth. The patient has a sitter, pleasant, cooperative, redirectable. The patient denied any thoughts of harming self or others, but sad and depressed. The patient's vital signs; temperature 97.8, pulse 66, respirations 16, blood pressure 168/94, and oxygen saturation 100%. REVIEW OF SYSTEMS Complete review of system unremarkable. MENTAL STATUS EXAMINATION General appearance; the patient dressed casually, thin built, lying comfortably in bed. The patient has a sling on his left arm, has weakness on the left side due to stroke. Attention span and concentration, fair. Speech, regular rate. Oriented in place and person. Mood and affect, sad and depressed. Thought process, coherent. Thought content, the patient denied any thoughts of harming self or others or any hallucination. Recent and remote memory, fair. Language, intact. Fund of knowledge, fair to slightly impaired. Insight and judgment, fair to slightly impaired. DIAGNOSES Psychiatric: Opioid use disorder, severe, F11.20; amphetamine use disorder, severe, F15.20; major depressive disorder, recurrent, severe, F33.2; cannabis abuse, moderate, F12.20. ASSESSMENT/PLAN 1. Supportive psychotherapy and psychoeducation provided to the patient. 2. Educated about benefits and side effects of medication and course and prognosis of illness. 3. Advised to continue with current treatment. If needed, consider medication SSRI as the patient unable to take anything by mouth at this time after the patient has a feeding tube, plan to consider. Please feel Unit #: [id number] #: [id number] Patient: CHENTE KAHN free to call if any questions, telephone #[phone]. Dictated by... Eric Pérez/carlton TD: 02/04/2017 16:16 JOB #: [id number] CONSULTATION REPORT Page 1 of 1 X Julio Cee MD X CONSULTATION REPORT
--- NOTE | ~2017-01-27 | EKG ---
PATIENT: SLOANE MCKEON UNIT #: [id number] Ventricular Rate: 95 BPM Atrial Rate: 95 BPM P-R Interval: 136 ms QRS Duration: 104 ms Q-T Interval: 396 ms QTC Calculation(Bezet): 497 ms P [place]: 80 degrees Calculated R [place]: 90 degrees Calculated T [place]: 88 degrees Diagnosis Line: Normal sinus rhythm Diagnosis Line: Possible Left atrial enlargement Diagnosis Line: Rightward axis Diagnosis Line: Prolonged QT Diagnosis Line: Abnormal ECG Diagnosis Line: When compared with ECG of 01-AUG-2014 11:07, Diagnosis Line: Vent. rate has decreased BY 56 BPM Diagnosis Line: ST no longer depressed in Inferior leads Diagnosis Line: ST no longer depressed in Lateral leads Diagnosis Line: T wave inversion now evident in Lateral leads Diagnosis Line: Confirmed by WHITNEY FELIZ MD ([id number]) on 01/27/2017 Diagnosis Line: 8:05:06 PM INTERPRETING MD: TRAY BLANK
--- NOTE | ~2017-01-27 | CO ---
Unit #: [id number] #: [id number] Patient: SLOANE MCKEON [id number] [address] [place], [place] [address] [id number] Ana MR#: [id number] NAME: SLOANE MCKEON. ROOM: 317 Age: 46 Sex: M Admission Date: 01/27/2017 : 1970 Attending Physician: Jesse Nelson M.D. Primary Care Physician: aRmez Russell M.D. Consultation Date: 01/28/2017 CONSULTATION REPORT PRIMARY CARE PHYSICIAN Ramez Russell M.D. REASON FOR CONSULTATION Possible stroke. PATIENT IDENTIFICATION This is a 46-year-old right-handed white male, who is evaluated in room 7 in ICU and also we are the [employer]. PROBLEM LIST 1. Acute onset of left-sided weakness. 2. Prior stroke with some left-sided weakness. 3. Prior history of seizures, but has not been on antiepileptics. 4. Biggest concern I have is polysubstance abuse. He reported using ice. 5. He has history of polysubstance abuse in the past. 6. Diabetes. 7. Hypertension. 8. Hyperlipidemia. 9. Anxiety. 10. Hepatitis. 11. On top of all this, it looks like he has noncompliance. 12. I saw him in 2015 for possibility of seizures. HISTORY OF PRESENT ILLNESS This is a 46-year-old gentleman, who actually came to the hospital and the issue was that he was last seen normal at 2:00 and he came in around 4:20 p.m., also, there is a concern that he has done amphetamines and he says that he uses ice now, but he has significant left-sided weakness and this was probably worse than before. It was almost like no movement whatsoever, so I tried to ask the question and try to find from the family, as they were not available, to see if this was worsening of already existing symptoms or this was totally new and also whether he had a seizure and what I have found out was this was significantly worsening, so considered a brand new event. He was found collapsed, but he had done drugs, so after discussion with the ER physician, getting his CT, CTA. It was decided that this was a measurable neurologic deficit and he would be an alteplase candidate. He was given alteplase and the symptoms did not improve. The patient is very angry and upset and he wants to leave AMA. I have talked to him several times. Dr. Nelson has talked to him at least someone to get an MRI, but he is refusing that. We are trying to keep him calm and watch him. Unit #: [id number] #: [id number] Patient: SLOANE MCKEON He denies this was a seizure. PAST MEDICAL HISTORY As discussed above. 1. He has some cardiac issues and low EF. 2. He has history of nephrolithiasis. 3. He has had a cholecystectomy, cardiac cath, and lithotripsy. ALLERGIES None. HOME MEDICATIONS He is not taking any medication at all, not even aspirin. FAMILY HISTORY Grandfather had myocardial infarction. SOCIAL HISTORY He has history of polysubstance abuse. He used methamphetamines/ice. He smokes about a pack of cigarettes daily. Marijuana is also questionable. He walks with a cane. History of IV drug use and he said he used it about 6 months ago. He denies alcohol use. REVIEW OF SYSTEMS Detailed review of systems was attempted, but he is very upset and wants to go home. CONSTITUTIONAL: When asked specifically, denies any weight issues, fever, chills, rigors, or sweats. He denies any sleep issues. HEENT: He denies any headaches or double vision, earache, runny nose, or sore throat. CHEST: He denies any chest pain. He denies any shortness of air. GASTROINTESTINAL: No nausea, vomiting, diarrhea, or constipation. GENITOURINARY: No genitourinary symptom. EXTREMITIES: Left-sided weakness. PSYCHIATRIC: History of polysubstance abuse. NEUROLOGIC: Questionable seizures and polysubstance abuse and prior stroke. No other hematologic, dermatologic, or endocrine issues known to me. PHYSICAL EXAMINATION VITAL SIGNS: Temperature 98.5, pulse 84, respirations 26, blood pressure 125/82, saturations are 94% to 97%, weight of 179 pounds. NEUROLOGIC: The patient is awake. He is alert. He is oriented x2. He knows this is December. He is not fully oriented, but he may not be cooperating. Cranial nerve examination, responded to threats in all ambriz. Pupils are round, reactive to light, and accommodation. Eye movements are conjugate. No ptosis. No nystagmus. Sensation on the face and scalp are normal. Strength of muscles of facial expression seemed to normal symmetric. Hearing is intact. Tongue was midline. Uvula was midline also. Head turning was spontaneous. Motor examination; significant weakness on the left side. He has maximum 2 in the upper and lower extremity on the left side, right side is 5-/5. Unit #: [id number] #: [id number] Patient: SLOANE MCKEON Sensory examination intact for soft touch and pain sensation. No extinction was seen, but Romberg was not evaluated. Gait exams were deferred. I could not get any reflexes. Toes are equivocal. DIAGNOSTIC STUDIES LABORATORY RESULTS: Reviewed and as discussed. Random glucose 203 to 283, sodium was 134 to 136. Troponin was 0.29. Hemoglobin A1c was 10. White count was 10.6. Drug screen as discussed. IMAGING STUDIES: CT angio; 0% stenosis, though there was some movement artifact. CT head showed old right frontal lobe ischemia and also some on the left side. IMPRESSION This is a 46-year-old gentleman, who was brought in because of significant left-sided weakness. He was very weak, the strength of 1 to 2, so this was significant deficits, so we decided to give him an alteplase. He is now on post alteplase protocol. I will check his MRI and check his other labs. I will put him on aspirin. I think he is having some problem with swallowing. He may have aspiration also, so all stroke and post stroke followup workup is in progress and I am requesting him to stay. He needs to quit smoking, quit drinking, and it looks like he is noncompliant and that will be one of the biggest issues. Aspirin, Lipitor, and further treatment as indicated and I will follow him. Call me for any other questions, issues, or concerns and discussed with the team. Dictated by... Alayna Vigil M.D. ELVIN/carlton TD: 01/29/2017 12:02 JOB #: [id number] CONSULTATION REPORT Page 1 of 1 X Alayna Vigil MD CONSULTATION REPORT
--- NOTE | ~2017-01-27 | EKG ---
PATIENT: SLOANE MCKEON UNIT #: [id number] Ventricular Rate: 99 BPM Atrial Rate: 99 BPM P-R Interval: 130 ms QRS Duration: 104 ms Q-T Interval: 378 ms QTC Calculation(Bezet): 485 ms P [place]: 79 degrees Calculated R [place]: 101 degrees Calculated T [place]: 68 degrees Diagnosis Line: Normal sinus rhythm Diagnosis Line: Possible Left atrial enlargement Diagnosis Line: Rightward axis Diagnosis Line: Prolonged QT Diagnosis Line: Abnormal ECG Diagnosis Line: When compared with ECG of 27-JAN-2017 17:02, Diagnosis Line: T wave inversion no longer evident in Lateral Diagnosis Line: leads Diagnosis Line: Confirmed by WHITNEY FELIZ MD ([id number]) on 01/29/2017 Diagnosis Line: 7:23:42 PM INTERPRETING MD: TRAY BLANK
--- NOTE | ~2017-01-27 | EKG ---
PATIENT: SLOANE MCKEON UNIT #: [id number] Ventricular Rate: 83 BPM Atrial Rate: 83 BPM P-R Interval: 136 ms QRS Duration: 102 ms Q-T Interval: 428 ms QTC Calculation(Bezet): 502 ms P [place]: 73 degrees Calculated R [place]: 110 degrees Calculated T [place]: 83 degrees Diagnosis Line: Normal sinus rhythm Diagnosis Line: Possible Left atrial enlargement Diagnosis Line: Consider lateral infarct Diagnosis Line: Left ventricular hypertrophy Diagnosis Line: Nonspecific T wave abnormality Diagnosis Line: Prolonged QT Diagnosis Line: Abnormal ECG Diagnosis Line: When compared with ECG of 30-JAN-2017 00:45, Diagnosis Line: (unconfirmed) Diagnosis Line: No significant change was found Diagnosis Line: Confirmed by NIRUKA CORTÉS MD ([id number]) on Diagnosis Line: 01/31/2017 4:37:59 PM INTERPRETING MD: JAMIE
--- NOTE | ~2017-01-27 | CO ---
Unit #: [id number] #: [id number] Patient: CHENTE KAHN [id number] [facility] [address] [place], [place] [address] [id number] I MR#: [id number] NAME: CHENTE KAHN. ROOM: 317 Age: 46 Sex: M Admission Date: 01/27/2017 : 1970 Attending Physician: Jesse Nelson M.D. Primary Care Physician: Ramez Russell M.D. Consultation Date: 02/02/2017 CONSULTATION REPORT REASON FOR CONSULTATION Followup. HISTORY OF PRESENT ILLNESS Mr. Chente Kahn is a 46-year-old white male, seen in room 317, bed #1 on 02/02/[address] [facility]. The patient was diagnosed with CVA, history substance abuse, opioid abuse, amphetamine abuse, cannabis abuse. The patient has a sitter. Dressed casually, lying comfortably in bed. The patient reported that he would like to have ice. The patient is currently on n.p.o., scheduled to get feeding tube tomorrow morning. The patient's mood is sad, dysphoric, flat affect, but denied any thoughts of homicidal ideation. He has no agitation. Compliance with treatment. REVIEW OF SYSTEMS Complete review of systems is unremarkable expect as mentioned above. PHYSICAL EXAMINATION VITAL SIGNS: Temperature 98.7, pulse 62, respirations 16, blood pressure 127/81, and oxygen saturations 98%. MENTAL STATUS EXAMINATION General appearance; the patient dressed in hospital attire, thin built, dressed causally in hospital attire, lying comfortably in propped up position, has a sitter. Attention span and concentration, fair. Speech, regular rate and slow in volume and rate. Oriented in place and person. Mood and affect, sad and dysphoric. Thought process, coherent. Thought content, the patient denied any thoughts of harming self or other. Denies any hallucinations, but sad, depressed, withdrawn. Recent and remote memory, fair. Language, intact. Fund of knowledge, fair to slightly impaired. Insight and judgement, fair to slightly impaired. DIAGNOSES Psychiatric: Opioid use disorder, severe, F11.20. Amphetamine use disorder, moderate, F15.20. Major depressive disorder, recurrent, severe, F33.2. Cannabis abuse, moderate, F12.20. ASSESSMENT/PLAN 1. Supportive psychotherapy and psychoeducation were provided to the patient. 2. Educated about benefits and side effects of medication and course and prognosis of illness. 3. Advised to continue with his sitter one to one. The patient is currently on 72-hour hold. Continue with current treatment. If needed, Unit #: [id number] #: [id number] Patient: CHENTE KAHN consider further adjustment of medications. I suggest trying SSRI. Please feel free to call if any questions. . Dictated by... Eric Pérez/carlton TD: 02/04/2017 14:14 JOB #: [id number] CONSULTATION REPORT Page 1 of 1 X Julio Cee MD X CONSULTATION REPORT
[~2017-01-27 15:43] MED LIST: ASPIRIN81 MG PO; BACTRIM DS TABL1 TA1 PO; CELEXA20 MG PO; FLEXERIL PO; HYDROCHLOROTHIA25 MG PO; LAMISIL PO; LIPITOR20 MG PO; LISINOPRIL10 MG PO; METFORMIN HCL500 M1 PO; METFORMIN HCL500 M3 PO; NAPROXEN PO; NORVASC PO; PLAVIX PO; TOPROL XL PO; VOLTAREN50 MG PO
[2017-01-27 16:41] LABS: BASOPHIL# 0.1 X10e3 (0-0.3); BASOPHIL% 0.7 % (0-2.5); DIFF IND NO; EOSINOPHIL# 0.2 X10e3 (0-0.7); HEMATOCRIT 40.6 % (38.0-50.0); HEMOGLOBIN 13.4 gm/dL (13.0-16.0); INR 1.1; LYMPHOCYTE# 1.6 X10e3 (1.0-3.5); LYMPHOCYTE% 16.1 % (17.0-45.0); MEAN CELL VOLUME 83.1 FL (83-96); MEAN CORPUSCULAR HEMOGLOBIN 27.4 PG (28-34); MEAN PLATELET VOLUME 8.3 FL (6.5-11.5); MONOCYTE# 1.4 X10e3 (0-1.0); MONOCYTE% 13.7 % (3.0-12.0); NEUTROPHIL# 6.8 X10e3 (1.5-7.1); NEUTROPHIL% 67.5 % (40-75); PARTIAL THROMBOPLASTIN TIME 21.3 SECONDS (23.5-31.3); PLATELET COUNT 245 X10e3 (140-420); PROTHROMBIN TIME (PATIENT) 11.7 SECONDS (10.0-11.7); RED BLOOD COUNT 4.89 X10e (3.90-5.60); RED CELL DISTRIBUTION WIDTH 14.1 % (11.0-15.5); WHITE BLOOD COUNT 10.1 X10e3 (4.0-10.5)
[2017-01-27 16:44] LABS: ALBUMIN SERUM 2.8 g/dL (3.5-5.0); BILIRUBIN, DIRECT 0.1 mg/dL (0.0-0.2); BILIRUBIN,INDIRECT 0.4 mg/dL (0.0-0.9); BILIRUBIN,TOTAL 0.5 mg/dL (0.2-2.0); BUN/CREATININE RATIO 11.42; CALCIUM SERUM 8.8 mg/dL (8.4-10.2); CREATININE SERUM 1.4 mg/dL (0.6-1.4); POTASSIUM 3.9 mmol/L (3.5-5.1); PROTEIN TOTAL SERUM 7.3 g/dL (6.0-8.3)
[2017-01-27 17:04] LABS: URINE SOURCE CLEAN CATCH
[2017-01-27 17:09] LABS: URINE APPEARANCE TURBID; URINE BILIRUBIN NEG (NEG); URINE BLOOD 3+ (NEG); URINE COLOR YELLOW; URINE GLUCOSE >1000 MG/DL (NEG); URINE KETONE NEG (NEG); URINE LEUKOCYTE ESTERASE 2+ (NEG); URINE NITRATE NEG (NEG); URINE PROTEIN 2+ (NEG); URINE SPECIFIC GRAVITY 1.032 (1.003-1.035)
[2017-01-27 17:12] LABS: CULTURE INDICATED? YES; URBCS1 AUWI 25-50 /[HPF] (0-2); URINE BACTERIA AUWI 4+ (NEGATIVE); URINE SQUAMOUS EPITHELIAL CELL FEW /[HPF]; UWBCS1 AUWI INNUM (0-5)
[2017-01-27 17:22] LABS: URINE YEAST PRESENT
[2017-01-27 17:26] LABS: AMPHETAMINE POS (NEG); BARBITURATES NEG (NEG); BENZODIAZEPINES NEG (NEG); COCAINE NEG (NEG); MARIJUANA POS (NEG); OPIATES NEG (NEG); TRICYCLIC ANTIDEPRESSANTS NEG (NEG); U METHADONE NEG (NEG)
[2017-01-27 17:57] LABS: POC - CKMB 4.5 ng/mL (0.0-7.9); POC - TROPONIN <0.05 ng/mL (<=0.05)
[2017-01-27 21:23] LABS: POC - CKMB 3.8 ng/mL (0.0-7.9); POC - TROPONIN <0.05 ng/mL (<=0.05)
[2017-01-27 21:26] LABS: POC - CREATININE 1.48 mg/dL (0.64-1.27)
[2017-01-28 04:39] LABS: BASOPHIL# 0.1 X10e3 (0-0.3); BASOPHIL% 0.6 % (0-2.5); EOSINOPHIL# 0.2 X10e3 (0-0.7); EOSINOPHIL% 2.3 % (0.0-7.0); HEMATOCRIT 39.4 % (38.0-50.0); HEMOGLOBIN 12.9 gm/dL (13.0-16.0); LYMPHOCYTE# 1.7 X10e3 (1.0-3.5); LYMPHOCYTE% 15.9 % (17.0-45.0); MEAN CELL VOLUME 81.9 FL (83-96); MEAN CORPUSCULAR HEMOGLOBIN 26.9 PG (28-34); MEAN CORPUSCULAR HGB CONC 32.8 g/dL (30-36); MEAN PLATELET VOLUME 8.6 FL (6.5-11.5); MONOCYTE# 1.2 X10e3 (0-1.0); MONOCYTE% 11.7 % (3.0-12.0); NEUTROPHIL# 7.4 X10e3 (1.5-7.1); NEUTROPHIL% 69.5 % (40-75); PLATELET COUNT 278 X10e3 (140-420); RED BLOOD COUNT 4.81 X10e (3.90-5.60); WHITE BLOOD COUNT 10.6 X10e3 (4.0-10.5)
[2017-01-28 04:41] LABS: DIFF IND NO
[2017-01-28 05:04] LABS: INR 1.1; PROTHROMBIN TIME (PATIENT) 11.8 SECONDS (10.0-11.7)
[2017-01-28 05:20] LABS: ALBUMIN SERUM 2.3 g/dL (3.5-5.0); BILIRUBIN,TOTAL 0.5 mg/dL (0.2-2.0); BUN/CREATININE RATIO 12.22; CALCIUM SERUM 8.1 mg/dL (8.4-10.2); CREATININE SERUM 0.9 mg/dL (0.6-1.4); GLOM FILT RATE Estimated 100.6 mL/min (>60); POTASSIUM 4.3 mmol/L (3.5-5.1); PROTEIN TOTAL SERUM 6.1 g/dL (6.0-8.3)
[2017-01-28 05:34] LABS: CK TOTAL 56 IU/L (36-174)
[2017-01-28] MEDS ORDERED: NO MEDICATIONS (09:53)
[2017-01-28 14:53] LABS: CK TOTAL 46 IU/L (36-174)
[2017-01-28 15:03] LABS: CHOLESTEROL 124 mg/dL (0-200); HDL CHOLESTEROL 28 mg/dL (29-75); LDL CHOLESTEROL 77 mg/dL (-130); LDL/HDL RATIO 3 RATIO (0-4); TRIGLYCERIDES 94 mg/dL (10-160)
[2017-01-28 15:47] LABS: FOLATE (FOLIC ACID) 13.1 ng/mL (>5.8)
[2017-01-28 22:00] LABS: CK TOTAL 39 IU/L (36-174)
[2017-01-29 03:29] LABS: CK TOTAL 51 IU/L (36-174)
[2017-01-30 01:14] LABS: HEMATOCRIT 43.3 % (38.0-50.0); HEMOGLOBIN 14.3 gm/dL (13.0-16.0); MEAN CELL VOLUME 81.3 FL (83-96); MEAN CORPUSCULAR HEMOGLOBIN 26.9 PG (28-34); MEAN CORPUSCULAR HGB CONC 33.1 g/dL (30-36); MEAN PLATELET VOLUME 8.6 FL (6.5-11.5); RED BLOOD COUNT 5.33 X10e (3.90-5.60); RED CELL DISTRIBUTION WIDTH 14.2 % (11.0-15.5); WHITE BLOOD COUNT 16.4 X10e3 (4.0-10.5)
[2017-01-30 01:26] LABS: INR 1.1; PARTIAL THROMBOPLASTIN TIME 24.3 SECONDS (23.5-31.3); PROTHROMBIN TIME (PATIENT) 11.4 SECONDS (10.0-11.7)
[2017-01-30 01:39] LABS: CALCIUM SERUM 8.1 mg/dL (8.4-10.2); GLOM FILT RATE Estimated 88.6 mL/min (>60); POTASSIUM 3.8 mmol/L (3.5-5.1)
[2017-01-30 02:00] LABS: %MB 24.5 % (0.0-4.0); MB 30.1 ng/ml
[2017-01-30 07:19] LABS: BASOPHIL# 0.1 X10e3 (0-0.3); BASOPHIL% 0.6 % (0-2.5); EOSINOPHIL# 0.2 X10e3 (0-0.7); EOSINOPHIL% 1.6 % (0.0-7.0); HEMATOCRIT 41.9 % (38.0-50.0); HEMOGLOBIN 13.7 gm/dL (13.0-16.0); LYMPHOCYTE# 2.2 X10e3 (1.0-3.5); LYMPHOCYTE% 14.9 % (17.0-45.0); MEAN CELL VOLUME 81.7 FL (83-96); MEAN CORPUSCULAR HEMOGLOBIN 26.7 PG (28-34); MEAN CORPUSCULAR HGB CONC 32.7 g/dL (30-36); MEAN PLATELET VOLUME 8.5 FL (6.5-11.5); MONOCYTE# 1.4 X10e3 (0-1.0); MONOCYTE% 9.9 % (3.0-12.0); NEUTROPHIL# 10.6 X10e3 (1.5-7.1); PLATELET COUNT 273 X10e3 (140-420); RED BLOOD COUNT 5.13 X10e (3.90-5.60); RED CELL DISTRIBUTION WIDTH 14.3 % (11.0-15.5); WHITE BLOOD COUNT 14.6 X10e3 (4.0-10.5)
[2017-01-30 07:26] LABS: DIFF IND NO
[2017-01-30 07:46] LABS: CALCIUM SERUM 8.2 mg/dL (8.4-10.2); GLOM FILT RATE Estimated 88.6 mL/min (>60); POTASSIUM 3.9 mmol/L (3.5-5.1)
[2017-01-30 08:02] LABS: %MB 19.6 % (0.0-4.0)
[2017-01-30 18:30] LABS: %MB 17.8 % (0.0-4.0); MB 10.7 ng/ml
[2017-01-31 07:29] LABS: BUN/CREATININE RATIO 13.07; CALCIUM SERUM 8.1 mg/dL (8.4-10.2); CREATININE SERUM 1.3 mg/dL (0.6-1.4); GLOM FILT RATE Estimated 64.5 mL/min (>60); MAGNESIUM 1.9 mg/dL (1.6-3.0); POTASSIUM 3.9 mmol/L (3.5-5.1)
[2017-01-31 11:55] LABS: HEMOGLOBIN 13.1 gm/dL (13.0-16.0); MEAN CELL VOLUME 82.4 FL (83-96); MEAN CORPUSCULAR HGB CONC 32.8 g/dL (30-36); MEAN PLATELET VOLUME 9.1 FL (6.5-11.5); RED BLOOD COUNT 4.85 X10e (3.90-5.60); WHITE BLOOD COUNT 11.3 X10e3 (4.0-10.5)
[2017-01-31 15:56] LABS: HA AB IGM (HEPPAN) Nonreactive (()); HB CORE AB IGM (HEPPAN) Reactive (Nonreactive); HB S AG (HEPPAN) Reactive (Nonreactive); HEP C AB (HEPPAN) Reactive (Nonreactive)
[2017-02-01 08:58] LABS: HEMATOCRIT 41.9 % (38.0-50.0); MEAN CORPUSCULAR HEMOGLOBIN 27.5 PG (28-34); MEAN CORPUSCULAR HGB CONC 33.5 g/dL (30-36); MEAN PLATELET VOLUME 8.6 FL (6.5-11.5); RED BLOOD COUNT 5.11 X10e (3.90-5.60); RED CELL DISTRIBUTION WIDTH 14.3 % (11.0-15.5); WHITE BLOOD COUNT 10.9 X10e3 (4.0-10.5)
[2017-02-01 09:48] LABS: BUN/CREATININE RATIO 16.42; CALCIUM SERUM 8.4 mg/dL (8.4-10.2); CREATININE SERUM 1.4 mg/dL (0.6-1.4); POTASSIUM 4.2 mmol/L (3.5-5.1)
[2017-02-02 09:39] LABS: HEMATOCRIT 40.3 % (38.0-50.0); HEMOGLOBIN 13.3 gm/dL (13.0-16.0); MEAN CELL VOLUME 82.8 FL (83-96); MEAN CORPUSCULAR HEMOGLOBIN 27.4 PG (28-34); MEAN CORPUSCULAR HGB CONC 33.1 g/dL (30-36); MEAN PLATELET VOLUME 8.9 FL (6.5-11.5); RED BLOOD COUNT 4.87 X10e (3.90-5.60); RED CELL DISTRIBUTION WIDTH 13.8 % (11.0-15.5); WHITE BLOOD COUNT 9.3 X10e3 (4.0-10.5)
[2017-02-02 10:15] LABS: BUN/CREATININE RATIO 14.16; CREATININE SERUM 1.2 mg/dL (0.6-1.4); GLOM FILT RATE Estimated 71.1 mL/min (>60); POTASSIUM 4.2 mmol/L (3.5-5.1)
[2017-02-03 13:39] LABS: HEMATOCRIT 41.7 % (38.0-50.0); HEMOGLOBIN 13.6 gm/dL (13.0-16.0); MEAN CELL VOLUME 82.5 FL (83-96); MEAN CORPUSCULAR HEMOGLOBIN 26.9 PG (28-34); MEAN CORPUSCULAR HGB CONC 32.6 g/dL (30-36); MEAN PLATELET VOLUME 8.5 FL (6.5-11.5); RED BLOOD COUNT 5.05 X10e (3.90-5.60); RED CELL DISTRIBUTION WIDTH 14.4 % (11.0-15.5)
[2017-02-03 14:12] LABS: BUN/CREATININE RATIO 11.53; CALCIUM SERUM 8.3 mg/dL (8.4-10.2); CREATININE SERUM 1.3 mg/dL (0.6-1.4); GLOM FILT RATE Estimated 64.5 mL/min (>60); POTASSIUM 3.8 mmol/L (3.5-5.1)
[2017-02-05] MEDS ORDERED: AMLODIPINE BESYL5 MG PO (19:39)
[2017-02-05] MEDS ORDERED: CLOPIDOGREL75 MG PO (19:40)
[2017-02-05] MEDS ORDERED: FERRO-TIME325 MG PO (19:41)
[2017-02-05] MEDS ORDERED: HYDROCHLOROTH12.5 MG PO (19:41)
[2017-02-05] MEDS ORDERED: METFORMIN HCL500 M1 PO (19:42)
[2017-02-05] MEDS ORDERED: LISINOPRIL10 MG PO (19:42)
[2017-02-05] MEDS ORDERED: METOPROLOL SUCC25 MG PO (19:43)
[2017-02-05] MEDS ORDERED: KLOR-CON SPRIN10 MEQ PO (19:45)
[2017-02-05] MEDS ORDERED: ALBUTEROL17 GM INH (19:45)
[2017-02-05] MEDS ORDERED: VITAMIN D250000 UNIT PO (19:46)
[2017-02-06 06:16] LABS: ALBUMIN SERUM 2.4 g/dL (3.5-5.0); BILIRUBIN,TOTAL 0.4 mg/dL (0.2-2.0); BUN/CREATININE RATIO 8.33; CALCIUM SERUM 8.4 mg/dL (8.4-10.2); CREATININE SERUM 1.2 mg/dL (0.6-1.4); GLOM FILT RATE Estimated 71.1 mL/min (>60); MAGNESIUM 1.9 mg/dL (1.6-3.0); POTASSIUM 3.5 mmol/L (3.5-5.1); PROTEIN TOTAL SERUM 6.1 g/dL (6.0-8.3)
[2017-02-06 06:47] LABS: HEMATOCRIT 41.9 % (38.0-50.0); HEMOGLOBIN 13.5 gm/dL (13.0-16.0); MEAN CELL VOLUME 82.3 FL (83-96); MEAN CORPUSCULAR HEMOGLOBIN 26.6 PG (28-34); MEAN CORPUSCULAR HGB CONC 32.3 g/dL (30-36); RED BLOOD COUNT 5.09 X10e (3.90-5.60); RED CELL DISTRIBUTION WIDTH 14.2 % (11.0-15.5); WHITE BLOOD COUNT 10.5 X10e3 (4.0-10.5)
== END 2017-02-06 18:00 | disposition left against medical advice (07) | DRG 61 ==
LOC: CED 15:43 → CEDOF 18:34 → CICCU2 18:40 → CEDOF 18:40 → CICCU2 22:34 → CEDOF 22:34 → CICCU2 01-28 07:36 → C3A PCU 01-29 15:47
PROVIDERS: Emergency Medicine; Family Medicine; Internal Medicine; Internal Medicine Cardiovascular Disease; Internal Medicine Pulmonary Disease; Psychiatry & Neurology Neurology
PROC: 3E04317 Introduction of Other Thrombolytic into Central Vein, Percutaneous Approach (ICD-10-PCS; principal; 2017-01-27)
PROC: 05H333Z Insertion of Infusion Device into Right Innominate Vein, Percutaneous Approach (ICD-10-PCS; 2017-01-27)
PROC: B54MZZA Ultrasonography of Right Upper Extremity Veins, Guidance (ICD-10-PCS; 2017-01-27)
PROC: B325YZZ Computerized Tomography (CT Scan) of Bilateral Common Carotid Arteries using Other Contrast (ICD-10-PCS; 2017-01-27)
PROC: B32GYZZ Computerized Tomography (CT Scan) of Bilateral Vertebral Arteries using Other Contrast (ICD-10-PCS; 2017-01-27)
PROC: B328YZZ Computerized Tomography (CT Scan) of Bilateral Internal Carotid Arteries using Other Contrast (ICD-10-PCS; 2017-01-27)
PROC: B246YZZ Ultrasonography of Right and Left Heart using Other Contrast (ICD-10-PCS; 2017-01-28)
PROC: 0DH63UZ Insertion of Feeding Device into Stomach, Percutaneous Approach (ICD-10-PCS; 2017-02-05)
DX: I63.411 Cerebral infarction due to embolism of right middle cerebral artery (principal); I61.9 Nontraumatic intracerebral hemorrhage, unspecified; I21.4 Non-ST elevation (NSTEMI) myocardial infarction; I50.23 Acute on chronic systolic (congestive) heart failure; J69.0 Pneumonitis due to inhalation of food and vomit; E43 Unspecified severe protein-calorie malnutrition; J96.01 Acute respiratory failure with hypoxia; N39.0 Urinary tract infection, site not specified; I69.351 Hemiplegia and hemiparesis following cerebral infarction affecting right dominant side; T45.615A Adverse effect of thrombolytic drugs, initial encounter; F41.9 Anxiety disorder, unspecified; E11.65 Type 2 diabetes mellitus with hyperglycemia; E78.5 Hyperlipidemia, unspecified; I11.0 Hypertensive heart disease with heart failure; I25.10 Atherosclerotic heart disease of native coronary artery without angina pectoris; Z95.5 Presence of coronary angioplasty implant and graft; F17.210 Nicotine dependence, cigarettes, uncomplicated; Z86.73 Personal history of transient ischemic attack (TIA), and cerebral infarction without residual deficits; G40.909 Epilepsy, unspecified, not intractable, without status epilepticus; Z87.442 Personal history of urinary calculi; F11.10 Opioid abuse, uncomplicated; F15.10 Other stimulant abuse, uncomplicated; F99 Mental disorder, not otherwise specified; R29.707 NIHSS score 7
CPT/HCPCS: 36415; 51702; 70450; 70496; 70498; 71010; 74230; 80048; 80053; 80061; 80074; 80076; 80307; 81003; 82140; 82308; 82550; 82553; 82565; 82607; 82746; 82947; 83036; 83735; 83880; 84484; 85025; 85027; 85610; 85730; 86140; 87040; 87086; 87522; 87806; 92507; 92523-GN; 92526; 92610; 92611; 93005; 93306; 94640; 94760; 96365; 96376; 97110; 97116; 97162; 97167; 97530; 97535; 99291; G8978-GP; G8979-GP; G8987-GO; G8988-GO; G8996-GN; G8997-GN; J0696; J1450; J1815; J1885; J1940; J2543; J2997; J3370; J3490; Q9967

== ENCOUNTER 2017-02-06 19:20 | Observation (INO) | payer OTHER ==
[~2017-02-06] VITALS: Ht 154.9 cm; Wt 60.0 kg
--- NOTE | ~2017-02-06 | CO ---
Unit #: [id number] #: [id number] Patient: CHENTE MCKEON [id number] [address] [address] [id number] MR#: [id number] NAME: CHENTE MCKEON. ROOM: 313 Age: 46 Sex: M Admission Date: 02/06/2017 : 1970 Attending Physician: Chaz Black M.D. Primary Care Physician: Ramez Russell M.D. Consultation Date: 02/06/2017 CONSULTATION REPORT REASON FOR CONSULTATION Followup. DISCUSSION Mr. Chente Vega is a 46-year-old male, seen in room 317, bed 1 on 02/06/2017. The patient was receiving his food supplementation through GI tube, which was placed yesterday. The patient was coherent and cooperative. Able to answer questions appropriately. The patient reports that he is willing to go to a rehab. The patient reports that he has problems and needs some help. The patient has a history of CVA and history of substance abuse. The patient denied any thoughts of harming self or others. Denied any psychotic symptom. The patient's vital signs; temperature 98.2, pulse 74, respirations 18, blood pressure 140/74, and oxygen saturation 98%. REVIEW OF SYSTEMS A complete review of systems is unremarkable. MENTAL STATUS EXAMINATION General appearance; the patient dressed in hospital attire, lying comfortably in bed, compliant and cooperative. Attention span and concentration, fair. Speech; regular rate and coherent. Oriented in time, place, and person. Mood and affect were labile. Thought process, coherent. Thought content; the patient denied any thoughts of harming self or others. Recent and remote memory, fair. Language, intact. Fund of knowledge, fair. Insight and judgment, fair to slightly impaired. DIAGNOSES Psychiatric: Opioid use disorder, severe, F11.20; amphetamine use disorder, severe, F15.20; major depressive disorder, recurrent, severe, F33.2. ASSESSMENT AND PLAN 1. Supportive psychotherapy and psychoeducation provided to the patient. 2. Educated about benefits and side effects of medication and course and prognosis of illness. 3. Based on the current examination, the patient is able to make informed medical decision at this time. The patient is agreeable to go to a rehab. Plan to consider transferring the patient to rehab. Please feel free to call if any questions, telephone #[phone]. Dictated by... Julio Cee M.D. Unit #: [id number] #: [id number] Patient: CHENTE MCKEON NORBERT/christopherl TD: 02/07/2017 15:24 JOB #: [id number] CONSULTATION REPORT Page 1 of 1 X Julio Cee MD X CONSULTATION REPORT
--- NOTE | ~2017-02-06 | HP ---
Unit #: [id number] #: [id number] Patient: SLOANE MCKEON [id number] [id number] [facility]. [place], [place] [address] [id number] I MR#: [id number] NAME: SLOANE MCKEON. ROOM: 313 Age: 46 Sex: M Admission Date: 02/06/2017 : 1970 Attending Physician: Marisol Orozco M.D. Primary Care Physician: Ramez Russell M.D. HISTORY AND PHYSICAL HISTORY This 46-year-old male with a recent right MCA CVA, ischemic cardiomyopathy with congestive heart failure and SC, hypertension, AODM, is admitted for weakness. The patient was admitted to this facility 01/27/2017 through 02/06/2017 for a right middle cerebral artery CVA after using methamphetamines. He was given tPA without improvement of his left-sided weakness. He was initially admitted to the Intensive Care Unit, then transitioned to . He ruled in for an SC, developed congestive heart failure. Underwent an echo revealing an ejection fraction of 10% to 15%. Also developed aspiration pneumonia. Due to dysphagia a PEG tube was placed I believe yesterday. He was awaiting a bed at [facility] for rehab. He was initially deemed incompetent to make his own decisions, and his family member is power of employment attorney. Today the patient became angry, decided he was going to sign out AMA. Because he was alert and oriented x3 he signs his AMA papers. He then was wheeled down to the hospital lobby, nobody picked him up. He was then wheeled back to the emergency department where he decides he wants to return to his bed on 3A and await rehab. He only complains of being thirsty and of back pain. I attempted to have the patient just go back up to his 3A room, resuming previous orders, but apparently this was an issue. Therefore, the patient is to be readmitted to TCU. PAST MEDICAL HISTORY 1. Admission 01/27/2017 through 02/06/2017 for a right middle cerebral artery CVA resulting in left-sided weakness and dysphagia. Patient did not improve with tPA. 2. Ischemic cardiomyopathy, ejection fraction 10% to 15% on recent echo. He ruled in for a non ST elevation SC. His last cardiac catheterization 2013, ejection fraction at that time was 40% with 40% to 50% stenosis of the mid LAD, 90% thrombotic lesion, status post PCI and stent of the LAD. 3. Remote CVA with residual left-sided weakness. 4. AODM. 5. Essential hypertension. 6. Hyperlipidemia. 7. Remote seizures. 8. History of hepatitis. 9. History of kidney stones. 10. Recent aspiration pneumonia and congestive heart failure during his stay over the past couple of weeks. 11. Polysubstance abuse with urine tox screen positive for methamphetamine and marijuana. 12. Cholecystectomy. Unit #: [id number] #: [id number] Patient: SLOANE CMKEON 13. Lithotripsy. ALLERGIES No known drug allergies. MEDICATIONS From the best I can determine include Plavix 75 mg daily; Augmentin 875 mg b.i.d.; Lipitor 10 mg q.h.s.; Coreg 3.125 mg b.i.d.; Toradol; Lasix 20 mg daily; spirolactone 12.5 mg daily; lisinopril 10 mg daily; aspirin 81 mg daily; NicoDerm patch; melatonin. FAMILY HISTORY CAD. SOCIAL HISTORY The patient was living along, currently is awaiting a bed I believe at [facility]. History of polysubstance abuse, methamphetamines, marijuana, tobacco abuse. REVIEW OF SYSTEMS Patient complained of back pain, feeling thirsty, previous stroke, diabetes, hypertension, LV dysfunction, above mentioned surgeries. All other systems were reviewed and otherwise negative. PHYSICAL EXAMINATION GENERAL: Thin, 46-year-old male who currently is in no acute distress. VITAL SIGNS: Temperature 98.4, pulse 90, respirations 16, blood pressure 152/81, O2 saturation 96% on room air. HEENT: Eyes - PERRLA. Extraocular muscles are intact. Pharynx - left lower facial droop. Pharynx is benign. NECK: Supple without adenopathy or thyromegaly. CHEST: Clear. CARDIAC: Normal S1 and S2 without definite murmur. ABDOMEN: Bowel sounds are present. Mild tenderness near the peg tube site. There is a PEG tube in the upper abdomen. No hepatosplenomegaly or masses. EXTREMITIES: Without clubbing, cyanosis or edema. NEUROLOGIC: Patient is awake, alert. He is oriented x3. His cranial nerves reveals a left lower facial droop. He has left-sided weakness more in the left arm than the left leg. ASSESSMENT 1. Patient left AMA. He was unable to go home. He had a recent right MCA CVA, resulting in left-sided weakness and is immobilized. He was actually awaiting a rehab bed. During his last stay he was not felt to be competent to make his decisions and his family member is a POA. However, he was oriented x3 and signed out AMA today. He returned to the ER as he was not able to go home. He is being readmitted to 3A TCU bed. 2. Admission 01/27/2017 through today for right MCA CVA, status post tPA without improvement. Patient has left-sided weakness, more in left arm than the left leg, awaiting rehab. Did develop aspiration pneumonia, has a PEG tube in place for dysphagia. 3. Ischemic cardiomyopathy, ejection fraction 10% to 15% with recent non ST elevation SC during most recent hospitalization. Patient did developed congestive heart failure. 4. Aspiration pneumonia on Augmentin. 5. Essential hypertension. Unit #: [id number] #: [id number] Patient: SLOANE MCKEON 6. Hepatitis C per old records. 7. Hyperlipidemia. 8. AODM. 9. Remote history of seizures. 10. History of polysubstance abuse. PLANS 1. Resume previous orders. 2. Check labs in the morning. 3. 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 4. SCDs for DVT prophylaxis. Dictated by Marisol Orozco M.D. AML/ts TD: 02/07/2017 05:01 JOB #: [id number] HISTORY AND PHYSICAL Page 1 of 1 X Marisol Orozco MD HISTORY AND PHYSICAL
--- NOTE | ~2017-02-06 | CO ---
Unit #: [id number] #: [id number] Patient: CHENTE KAHN [id number] [facility] [address]. [place], [place] [address] [id number] MR#: [id number] NAME: CHENTE KAHN. ROOM: 313 Age: 46 Sex: M Admission Date: 02/06/2017 : 1970 Attending Physician: Chaz Black M.D. Primary Care Physician: Ramez Russell M.D. Consultation Date: 02/07/2017 CONSULTATION REPORT DISCUSSION Mr. Chente Kahn is a 46-year-old male, seen in room 313, bed 1, on 02/07/2017 at [facility]. The patient has a PEG tube receiving nutrition through that. The patient reported wanting a popsicle. The patient reports that he is agreeable to go to rehab. The patient denied any thoughts of harming self or others. Denied any psychotic symptom, but sad and depressed. REVIEW OF SYSTEMS Complete review of systems unremarkable. MENTAL STATUS EXAMINATION The patient dressed casually. Attention span and concentration, fair. Speech, regular rate and coherent. Oriented to time, place, and person. Mood and affect were labile. Thought process, coherent. Thought content, the patient denied any thoughts of harming self or others. Recent and remote memory, fair. Language, intact. Fund of knowledge, fair. Insight and judgment, fair to slightly impaired. DIAGNOSES Major depressive disorder, recurrent, severe, F33.2; opioid use disorder, severe, F11.20. ASSESSMENT/PLAN 1. Supportive psychotherapy and psychoeducation were provided to the patient. 2. Educated about benefits and side effects of medication and course and prognosis of illness. 3. At this time, the patient is alert and oriented, not psychotic or suicidal or homicidal. The patient is able to make his informed medical decision at this time. Continue with the current treatment. If needed, consider further adjustment of medication. Dictated by... Julio Cee M.D. NORBERT/carlton TD: 02/08/2017 03:30 JOB #: [id number] Unit #: [id number] #: [id number] Patient: CHENTE KAHN CONSULTATION REPORT Page 1 of 1 X Julio Cee MD CONSULTATION REPORT
[~2017-02-06 19:20] MED LIST changes: +ALBUTEROL17 GM INH; +AMLODIPINE BESYL5 MG PO; +CLOPIDOGREL75 MG PO; +FERRO-TIME325 MG PO; +HYDROCHLOROTH12.5 MG PO; +KLOR-CON SPRIN10 MEQ PO; +METOPROLOL SUCC25 MG PO; +NO MEDICATIONS; +VITAMIN D250000 UNIT PO
[2017-02-07 07:53] LABS: HEMATOCRIT 42.7 % (38.0-50.0); HEMOGLOBIN 14.1 gm/dL (13.0-16.0); MEAN CELL VOLUME 81.4 FL (83-96); MEAN CORPUSCULAR HEMOGLOBIN 26.9 PG (28-34); MEAN PLATELET VOLUME 9.2 FL (6.5-11.5); RED BLOOD COUNT 5.25 X10e (3.90-5.60); RED CELL DISTRIBUTION WIDTH 14.5 % (11.0-15.5); WHITE BLOOD COUNT 12.8 X10e3 (4.0-10.5)
[2017-02-07 08:26] LABS: CALCIUM SERUM 8.8 mg/dL (8.4-10.2); GLOM FILT RATE Estimated 88.6 mL/min (>60); POTASSIUM 3.6 mmol/L (3.5-5.1)
== END 2017-02-07 16:38 ==
LOC: CED 19:20 → CEDOF 21:23 → CED 21:23 → CEDOF 21:30 → C3A PCU 21:30 → CEDOF 21:30 → C3A PCU 22:32 → CEDOF 22:32 → C3A PCU 02-07 08:10
PROVIDERS: Internal Medicine
DX: I63.9 Cerebral infarction, unspecified (principal); J96.01 Acute respiratory failure with hypoxia; M62.3 Immobility syndrome (paraplegic); J69.0 Pneumonitis due to inhalation of food and vomit; F19.10 Other psychoactive substance abuse, uncomplicated; I10 Essential (primary) hypertension; I50.9 Heart failure, unspecified; R13.10 Dysphagia, unspecified; Z91.19 Patient's noncompliance with other medical treatment and regimen; F33.2 Major depressive disorder, recurrent severe without psychotic features; G81.94 Hemiplegia, unspecified affecting left nondominant side; I25.5 Ischemic cardiomyopathy; E11.9 Type 2 diabetes mellitus without complications; I25.10 Atherosclerotic heart disease of native coronary artery without angina pectoris; Z95.1 Presence of aortocoronary bypass graft; Z95.5 Presence of coronary angioplasty implant and graft
CPT/HCPCS: 80048; 82947; 85027; 92610; 94760; 99284; G0378; G8996-GN; G8997-GN; J1815